=== PATIENT | female | born 1930 | race Caucasian/White ===

== ENCOUNTER 2016-11-21 09:46 | Emergency (ER) | payer MEDICARE ==
[2016-11-21] MEDS ORDERED: DIPH,PERTUS(ACELL)TETVAC-LF 0.5 ML VIAL IM ONE (10:31)
--- NOTE | 2016-11-21 10:45 | ED ---
General Adult HPI - General Chief complaint: Extremity Injury, Lower Stated complaint: RT LEG CONTUSION Time Seen by Provider: 11/21/16 09:53 Source: patient, family, RN notes reviewed Mode of arrival: wheelchair Limitations: no limitations - History of Present Illness Initial comments: Patient is a 86-year-old female presents to the emergency room for evaluation of right lower leg pain. Patient states that she got out of bed this morning and thought she ran her left foot into her right lower leg. Patient states she looked down and noticed a large blister/hematoma below her right calf. Patient' s son states they took her to [facility] and they were advised to come here. Patient states she's having 5 out of 10 pain. Patient denies numbness or tingling in her toes. Patient denies taking blood thinners. Patient states she is not up-to-date on her tetanus vaccine. - Related Data Home Medications Medication Instructions Recorded Confirmed Cyclosporine, Modified 100 mg PO HS 02/07/14 06/28/16 [Cyclosporine Modified] Multivitamin/Iron/Folic Acid 1 tab PO DAILY 02/07/14 06/28/16 [Centrum Complete Multivit Tab] amLODIPine [Norvasc] 5 mg PO QAM 02/07/14 06/28/16 Aspirin 81 mg PO QAM 05/09/15 06/28/16 Latanoprost Ophth [Xalatan 0.005%] 1 drop RIGHT EYE HS 11/02/15 06/28/16 Fluticasone Nasal [place] [Flonase 1 spray EA NOSTRIL BID 11/09/15 06/28/16 Nasal [place]] Brimonidine Tartrate [Alphagan P 1 drop BOTH EYES BID 12/17/15 06/28/16 0.2% Ophth Soln] Calcium Carbonate [Calcium] 600 mg PO QAM 06/28/16 06/28/16 Celecoxib [CeleBREX] 200 mg PO QAM 06/28/16 06/28/16 Hydrocodone/Acetaminophen [[place] 1 tab PO Q6HR PRN 06/28/16 06/28/16 5-325] Omeprazole 20 mg PO QAM 06/28/16 06/28/16 guaiFENesin [Mucinex] 600 mg PO QAM 06/28/16 06/28/16 Previous Rx's Medication Instructions Recorded Metoprolol Tartrate [Lopressor] 25 mg PO BID tab 11/14/15 Azithromycin [Zithromax] 500 mg PO DAILY #3 tab 07/01/16 Budesonide-Formot 160-4.5 Mcg 2 puff INHALATION RT-BID #3 puff 07/01/16 [Symbicort 160-4.5 Mcg Inhaler] Levalbuterol Nebulized [Xopenex 1.25 mg INHALATION QID PRN #360 07/01/16 Nebulized] nebule predniSONE 10 mg PO DAILY #30 tab 07/01/16 Cephalexin [Keflex] 500 mg PO Q6HR #40 cap 11/21/16 Allergies Allergy/AdvReac Type Severity Reaction Status Date / Time Sulfa (Sulfonamide Allergy Anaphylaxis Verified 11/21/16 09:51 Antibiotics) Review of Systems ROS Statement: Those systems with pertinent positive or pertinent negative responses have been documented in the HPI. ROS Other: All systems not noted in ROS Statement are negative. Past Medical History Past Medical History: Asthma, Blood Disorder, GERD/Reflux, Hypertension, Musculoskeletal Disorder, Osteoarthritis (OA), Respiratory Disorder Additional Past Medical History / Comment(s): FALL. Recurrent UTI BLADDER ULCERS,CHRONIC ANEMIA History of Any Multi-Drug Resistant Organisms: None Reported Past Surgical History: Appendectomy, Bladder Surgery, Bowel Resection, Hysterectomy, Orthopedic Surgery Additional Past Surgical History / Comment(s): BLADDER SX D/T ULCERS, left hip replacement November 2015, fall with right leg fracture to [facility] for rehab after Past Anesthesia/Blood Transfusion Reactions: No Reported Reaction Additional Past Anesthesia/Blood Transfusion Reaction / Comment(s): HAS HAD PREVIOUS BLOOD TRANSFUSIONS- states "no reactions" Past Psychological History: No Psychological Hx Reported Smoking Status: Never smoker Past Alcohol Use History: None Reported Past Drug Use History: None Reported - Past Family History Father Family Medical History: No Reported History Additional Family Medical History / Comment(s): FROM OLD AGE Mother Family Medical History: No Reported History Additional Family Medical History / Comment(s): FROM OLD AGE General Exam - General Exam Comments Initial Comments: Sitting in exam room, no acute distress. Limitations: no limitations General appearance: alert, in no apparent distress Head exam: Present: atraumatic, normocephalic, normal inspection Eye exam: Present: normal appearance ENT exam: Present: normal exam Neck exam: Present: normal inspection Respiratory exam: Present: normal lung sounds bilaterally. Absent: respiratory distress Cardiovascular Exam: Present: regular rate, normal rhythm, normal heart sounds Right Lower Leg exam: Present: full ROM. Absent: normal inspection (4 inch diameter blood blister/hematoma noted on the medial distal lower leg. Slighty fluctuant.) Neurovascular tendon exam: Present: no vascular compromise. Absent: pulse deficit (2+ dorsal pedal and posterior tibial pulses), abnormal cap refill ( Capillary refill less than 2 seconds) Gait: observed and normal Back exam: Present: normal inspection Neurological exam: Present: alert, oriented X3, CN II-XII intact, normal gait Psychiatric exam: Present: normal affect, normal mood Skin exam: Present: warm, dry, intact, normal color. Absent: rash Course Vital Signs 11/21/16 11/21/16 09:47 11:06 Temperature 98.7 F 98.2 F Pulse Rate 90 78 Respiratory 16 20 Rate Blood Pressure 162/72 145/78 O2 Sat by Pulse 96 98 Oximetry Procedures - Procedures Initial comment: Large blood blister/hematoma inscised with an 18-gauge needle and it appeared that blood had already clotted. Area was then incised with an 11-blade and clot removed. Inscision repaired with steristrips and covered with oil emursion strips. Right leg wrapped with gauze roll. Sterile procedure. Medical Decision Making - Medical Decision Making Patient is a 86-year-old female presents to the emergency room for evaluation of large right lower leg blood blister/hematoma. It is possible that patient was rubbing her legs together while sleeping which formed the large blood blister. Area was incised and clot removed. Area was closed with Steri- Strips. Discussed with patient and her son that she has high risk for infection. Patient will be placed on Keflex prophylactically and advised to follow-up with primary care provider every 2 days for reevaluation of the wound. Patient was updated on her tetanus vaccine. Patient states she understands everything that was discussed with her. Return parameters discussed. Case discussed with Dr. Johansen who also evaluated patient. Disposition Clinical Impression: Blood blister, Superficial hematoma Disposition: HOME SELF-CARE Condition: Good Instructions: Hematoma (ED) Additional Instructions: Take antibiotics as directed. Please follow up with primary care provider every 2 days for reevaluation of the wound site. If any new symptom arises or symptoms worsen, return to ER as soon as possible. Prescriptions: Cephalexin [Keflex] 500 mg PO Q6HR #40 cap Referrals: Dawood Washington MD [Primary Care Provider] - 1-2 days Time of Disposition: 10:43
[2016-11-21 11:07] VITALS: BP 145/78; PULSE 78; RESP 20; TEMP 98.2
== END 2016-11-21 11:06 | disposition home or self-care (01) ==
LOC: EC 09:46
DX: S80.11XA Contusion of right lower leg, initial encounter (principal); X58.XXXA Exposure to other specified factors, initial encounter; I10 Essential (primary) hypertension; J45.909 Unspecified asthma, uncomplicated; M19.90 Unspecified osteoarthritis, unspecified site; K21.9 Gastro-esophageal reflux disease without esophagitis; D64.9 Anemia, unspecified; Z79.1 Long term (current) use of non-steroidal anti-inflammatories (NSAID); Z79.51 Long term (current) use of inhaled steroids; Z79.899 Other long term (current) drug therapy; Z79.82 Long term (current) use of aspirin; Z88.2 Allergy status to sulfonamides; Z79.52 Long term (current) use of systemic steroids; Z23 Encounter for immunization
CPT/HCPCS: 10140; 90471; 90715; 99283

== ENCOUNTER → 2016-12-11 | Outpatient (CLI) | payer MEDICARE ==
--- NOTE | 2016-12-11 15:08 | XR ---
EXAMINATION TYPE: Bilateral rib series DATE OF EXAM: 12/11/2016 11:43 AM COMPARISON: Chest 06/28/2016 HISTORY: 86-year-old female rule out fractures, upper back pain for 2 to 3 weeks. FINDINGS: There is cement seen in the right paraspinal region of the mid thoracic spine likely related to extru ded methyl methacrylate during kyphoplasty. There is old healed right posterior sixth rib fracture de formity. No displaced rib fracture seen on either side. There is end-stage degenerative change at the left shoulder. IMPRESSION: No displaced rib fracture seen on either side. Old healed rib fracture deformity right posterior sixt h rib. End-stage osteoarthrosis left shoulder.
--- NOTE | 2016-12-11 15:21 | XR ---
EXAMINATION TYPE: XR cervical spine comp DATE OF EXAM: 12/11/2016 11:52 AM COMPARISON: 07/04/2014 HISTORY: 86-year-old female upper back pain for 2 to 3 weeks, rule out fracture TECHNIQUE: 8 views FINDINGS: No predental space widening or prevertebral soft tissue swelling. Advanced multilevel facet and uncov ertebral joint degenerative change. There is mild to moderate disc/endplate degenerative change also present throughout. Trace grade 1 anterolisthesis at C4-C5. Otherwise, alignment is maintained. On the right, there is moderate bony spondylotic neuroforaminal narrowing at C3-C4 and severe at C5-C 6 and probably moderate at C6-C7 though obliquity is suboptimal. On the left, there is moderate bony neuroforaminal narrowing at C2-C3 and mild throughout the other l evels. Suboptimal odontoid view. IMPRESSION: Moderate to advanced multilevel spondylotic change. There is a degenerative grade 1 anterolisthesis a t C4-C5. Variable moderate neuroforaminal narrowing on the right, severe at C5-C6.
== END | disposition home or self-care (01) ==
LOC: RADXRMAIN 10:28
PROVIDERS: ATTEND Internal Medicine Critical Care Medicine
DX: M19.012 Primary osteoarthritis, left shoulder (principal); M50.322 Other cervical disc degeneration at C5-C6 level; Z87.81 Personal history of (healed) traumatic fracture
CPT/HCPCS: 71110; 72050

== ENCOUNTER → 2016-12-25 | Outpatient (CLI) | payer MEDICARE ==
[2016-12-25 12:10] LABS: Anisocytosis Slight; CH 30.2; HCT 29.6 % (34.0-46.0); HDW 3.03; HGB 9.1 gm/dL (11.4-16.0); Hypochromasia Moderate; MCH 30.1 pg (25.0-35.0); MCHC 30.7 g/dL (31.0-37.0); Macrocytosis Slight; Mean Platelet Volume 8.6; RBC 3.02 m/uL (3.80-5.40); RDW 17.3 % (11.5-15.5); WBC 18.5 k/uL (3.8-10.6)
[2016-12-25 12:26] LABS: ALT 25 U/L (9-52); AST 12 U/L (14-36); Alkaline Phosphatase 106 U/L (38-126); Anion Gap 11 mmol/L; Blood Urea Nitrogen 40 mg/dL (7-17); C Reactive Protein 10.7 mg/L (<10.0); Carbon Dioxide 22 mmol/L (22-30); Chloride 106 mmol/L (98-107); Glucose 97 mg/dL (74-99); Non-African American GFR(MDRD) 43 (>60 ml/min/1.73 sqM); Potassium 5.7 mmol/L (3.5-5.1); Sodium 139 mmol/L (137-145); Total Bilirubin 0.3 mg/dL (0.2-1.3); Total Protein 6.1 g/dL (6.3-8.2)
[2016-12-25 12:31] LABS: Prealbumin 25 mg/dL (18-36); Rheumatoid Factor, Qnt <9 IU/mL (<12)
[2016-12-25 15:40] LABS: Erythrocyte Sedimentation Rate 40 mm/hr (0-20)
== END | disposition home or self-care (01) ==
LOC: LABWHC1 11:37
PROVIDERS: ATTEND Family Medicine
DX: I87.2 Venous insufficiency (chronic) (peripheral) (principal)
CPT/HCPCS: 36415; 80053; 82164; 84134; 85027; 85652; 86038; 86140; 86431

== ENCOUNTER → 2017-01-05 | Outpatient (CLI) | payer MEDICARE ==
--- NOTE | 2017-01-05 15:47 | US ---
EXAMINATION TYPE: US venous doppler duplex LE DATE OF EXAM: 01/05/2017 2:47 PM COMPARISON: NONE CLINICAL HISTORY: M79.604 PAIN RT LEG, M79.603 PAIN LT LEG. Bilateral lower leg wounds LOWER EXTREMITY VENOUS INSUFFICIENCY SIDE PERFORMED: bilateral IMPRESSION: 1) Color flow is present and patency is documented in the following vessels. No DVT or SVT is noted . ? EIV ? Common Femoral Vein ? Deep Femoral Vein ? Femoral Vein ? Popliteal Vein ? Proximal Calf Veins ? Greater Saph Vein ? Upper Small Saph Vein 2) There is venous reflux noted at the following venous levels: Minimal reflux noted left popliteal vein.
--- NOTE | 2017-01-07 10:09 | P.ARTDOP ---
Arterial Doppler LOWER EXTREMITY ARTERIAL DOPPLER: DATE OF SERVICE: 01/05/2017 Reason for study: Bilateral lower leg ulcers. Doppler waveforms: Multiphasic bilaterally throughout. Pulse volume recording: Normal configuration. Pressure gradients: None. Ankle-brachial indices: Unable to occlude. Toe pressures: 111 on the right, 1:15 on the left Impression: Suspect some calcific wall disease creating inability to occlude ankle pressures. Appears to not affect flow and flow patterns appear normal..
== END | disposition home or self-care (01) ==
LOC: RADUSWWP 14:08
PROVIDERS: ATTEND Family Medicine
DX: I87.2 Venous insufficiency (chronic) (peripheral) (principal); M79.604 Pain in right leg; M79.605 Pain in left leg
CPT/HCPCS: 93923; 93970

== ENCOUNTER 2017-01-31 17:58 | Inpatient (IN) | payer MEDICARE ==
[2017-01-31] MEDS ORDERED: methylPREDNISolone SOD SUCCI 125 MG/2 ML VIAL IV STA (18:27)
[2017-01-31] MEDS ORDERED: IPRATROPIUM-ALBUTEROL 3 ML NEB INHALATION STA (18:27)
[2017-01-31] MEDS ORDERED: SODIUM CHLORIDE 0.9% 1,000 ML IV STA ×2 (18:27→22:02)
--- NOTE | 2017-01-31 18:31 | ED ---
SOB HPI - General Chief Complaint: Shortness of Breath Stated Complaint: hot flashes, chaparro, dizziness recent Hx bronchitis Time Seen by Provider: 01/31/17 18:20 Source: patient, family, RN notes reviewed Mode of arrival: wheelchair Limitations: no limitations - History of Present Illness Initial Comments: This is a 86-year-old female history of COPD and bronchitis who just finished her course of treatment with oral steroids and azithromycin who presents with complaints of shortness of breath chest pain from the coughing some fevers and sweats. Generalized weakness also decreased oral intake. MD Complaint: shortness of breath, cough, chest pain - Related Data Home Medications Medication Instructions Recorded Confirmed Cyclosporine, Modified 100 mg PO HS 02/07/14 01/29/17 [Cyclosporine Modified] amLODIPine [Norvasc] 5 mg PO QAM 02/07/14 01/31/17 Aspirin 81 mg PO QAM 05/09/15 01/31/17 Latanoprost Ophth [Xalatan 0.005%] 1 drop BOTH EYES HS 11/02/15 01/31/17 Fluticasone Nasal [place] [Flonase 1 spray EA NOSTRIL BID 11/09/15 01/31/17 Nasal [place]] Brimonidine Tartrate [Alphagan P 1 drop BOTH EYES BID 12/17/15 01/31/17 0.2% Ophth Soln] Calcium Carbonate [Calcium] 600 mg PO QAM 06/28/16 01/31/17 Celecoxib [CeleBREX] 200 mg PO QAM 06/28/16 01/31/17 Omeprazole 20 mg PO QAM 06/28/16 01/31/17 guaiFENesin [Mucinex] 600 mg PO QAM 06/28/16 01/31/17 Azithromycin [Zithromax] 500 mg PO DAILY 01/31/17 01/31/17 Betaxolol HCl [Betoptic S 0.5% 1 drop BOTH EYES BID 01/31/17 01/31/17 Ophth Soln] Cyanocobalamin (Vitamin B-12) 1,000 mcg PO DAILY 01/31/17 01/31/17 [Vitamin B-12] Levalbuterol Nebulized [Xopenex 1.25 mg INHALATION RT-BID 01/31/17 01/31/17 Nebulized] Tiotropium [place] [Spiriva] 1 cap INHALATION RT-DAILY 01/31/17 01/31/17 cycloSPORINE 0.05% OPHTH SOLN 1 drop BOTH EYES BID 01/31/17 01/31/17 [Restasis] predniSONE See Taper PO DAILY 01/31/17 01/31/17 Previous Rx's Medication Instructions Recorded Metoprolol Tartrate [Lopressor] 25 mg PO BID tab 11/14/15 Budesonide-Formot 160-4.5 Mcg 2 puff INHALATION RT-BID #3 puff 07/01/16 [Symbicort 160-4.5 Mcg Inhaler] Allergies Allergy/AdvReac Type Severity Reaction Status Date / Time Sulfa (Sulfonamide Allergy Anaphylaxis Verified 01/31/17 18:33 Antibiotics) Review of Systems ROS Statement: Those systems with pertinent positive or pertinent negative responses have been documented in the HPI. ROS Other: All systems not noted in ROS Statement are negative. Past Medical History Past Medical History: Asthma, Blood Disorder, GERD/Reflux, Hypertension, Musculoskeletal Disorder, Osteoarthritis (OA), Respiratory Disorder Additional Past Medical History / Comment(s): CHRONIC ANEMIA History of Any Multi-Drug Resistant Organisms: MRSA Date of last positivie culture/infection: 12/18/16 MDRO Source:: RIGHT LEG Past Surgical History: Appendectomy, Bladder Surgery, Bowel Resection, Hysterectomy, Orthopedic Surgery Additional Past Surgical History / Comment(s): BLADDER SX D/T ULCERS, left hip replacement November 2015, fall with right leg fracture to [facility] for rehab after Past Anesthesia/Blood Transfusion Reactions: No Reported Reaction Additional Past Anesthesia/Blood Transfusion Reaction / Comment(s): HAS HAD PREVIOUS BLOOD TRANSFUSIONS- states "no reactions" Past Psychological History: No Psychological Hx Reported Smoking Status: Never smoker Past Alcohol Use History: None Reported Past Drug Use History: None Reported - Past Family History Father Family Medical History: No Reported History Additional Family Medical History / Comment(s): FROM OLD AGE Mother Family Medical History: No Reported History Additional Family Medical History / Comment(s): FROM OLD AGE General Exam - General Exam Comments Initial Comments: This is a well-developed well-nourished awake alert oriented x 3female Limitations: no limitations General appearance: alert, in distress Head exam: Present: atraumatic, normocephalic, normal inspection Eye exam: Present: normal appearance, PERRL, EOMI. Absent: scleral icterus, conjunctival injection, periorbital swelling ENT exam: Present: mucous membranes dry Neck exam: Present: normal inspection. Absent: tenderness, meningismus, lymphadenopathy Respiratory exam: Present: accessory muscle use, decreased breath sounds. Absent: respiratory distress, wheezes, rales, rhonchi, stridor Cardiovascular Exam: Present: regular rate, normal rhythm, tachycardia, normal heart sounds. Absent: systolic murmur, diastolic murmur, rubs, gallop, clicks GI/Abdominal exam: Present: soft, normal bowel sounds. Absent: distended, tenderness, guarding, rebound, rigid Extremities exam: Present: normal inspection, full ROM, normal capillary refill. Absent: tenderness, pedal edema, joint swelling, calf tenderness Back exam: Present: normal inspection Neurological exam: Present: alert, oriented X3, CN II-XII intact Psychiatric exam: Present: normal affect, normal mood Skin exam: Present: warm, dry, intact, normal color. Absent: rash Course Vital Signs 01/31/17 01/31/17 01/31/17 18:07 18:19 18:47 Temperature 98.5 F Pulse Rate 121 H 119 H Respiratory 20 16 Rate Blood Pressure 167/80 O2 Sat by Pulse 95 Oximetry 01/31/17 01/31/17 18:57 19:57 Temperature 98.1 F Pulse Rate 120 H 119 H Respiratory 18 Rate Blood Pressure 158/83 O2 Sat by Pulse 99 Oximetry - Reevaluation(s) Reevaluation #1: 01/31/17 20:51 I did reevaluate the patient she was feeling slightly better so short of breath however. Medical Decision Making - Medical Decision Making I did discuss findings with the patient family as well as with Dr. Duarte. 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 Visual be admitted place an IV antibiotics and consultation by Dr. Schafer - Lab Data Result diagrams: 01/31/17 18:29 01/31/17 18:29 Lab Results 01/31/17 01/31/17 01/31/17 Range/Units 18:29 18:29 18:29 WBC 19.4 H (3.8-10.6) k/uL RBC 3.65 L (3.80-5.40) m/uL Hgb 11.0 L (11.4-16.0) gm/dL Hct 34.2 (34.0-46.0) % MCV 93.6 (80.0-100.0) fL MCH 30.0 (25.0-35.0) pg MCHC 32.1 (31.0-37.0) g/dL RDW 16.6 H (11.5-15.5) % Plt Count 356 (150-450) k/uL Neutrophils % 92 % Lymphocytes % 3 % Monocytes % 4 % Eosinophils % 0 % Basophils % 0 % Neutrophils # 17.8 H (1.3-7.7) k/uL Lymphocytes # 0.6 L (1.0-4.8) k/uL Monocytes # 0.8 (0-1.0) k/uL Eosinophils # 0.0 (0-0.7) k/uL Basophils # 0.1 (0-0.2) k/uL Manual Slide Review Performed Toxic Granulation Present Large Platelets Present Anisocytosis Slight PT (9.0-12.0) sec INR (<1.1) APTT (22.0-30.0) sec Sodium 137 (137-145) mmol/L Potassium 5.9 H (3.5-5.1) mmol/L Chloride 103 (98-107) mmol/L Carbon Dioxide 25 (22-30) mmol/L Anion Gap 9 mmol/L BUN 49 H (7-17) mg/dL Creatinine 1.10 H (0.52-1.04) mg/dL Est GFR (MDRD) Af Amer 57 (>60 ml/min/1.73 sqM) Est GFR (MDRD) Non-Af 47 (>60 ml/min/1.73 sqM) Glucose 134 H (74-99) mg/dL Calcium 9.5 (8.4-10.2) mg/dL Magnesium 2.2 (1.6-2.3) mg/dL Total Bilirubin 0.5 (0.2-1.3) mg/dL AST 16 (14-36) U/L ALT 27 (9-52) U/L Alkaline Phosphatase 121 (38-126) U/L Total Creatine Kinase 24 L (30-135) U/L CK-MB (CK-2) 1.5 (0.0-2.4) ng/mL CK-MB (CK-2) Rel Index 6.3 Troponin I <0.012 (0.000-0.034) ng/mL NT-Pro-B Natriuret Pep pg/mL Total Protein 6.2 L (6.3-8.2) g/dL Albumin 3.5 (3.5-5.0) g/dL 01/31/17 01/31/17 Range/Units 18:29 18:29 WBC (3.8-10.6) k/uL RBC (3.80-5.40) m/uL Hgb (11.4-16.0) gm/dL Hct (34.0-46.0) % MCV (80.0-100.0) fL MCH (25.0-35.0) pg MCHC (31.0-37.0) g/dL RDW (11.5-15.5) % Plt Count (150-450) k/uL Neutrophils % % Lymphocytes % % Monocytes % % Eosinophils % % Basophils % % Neutrophils # (1.3-7.7) k/uL Lymphocytes # (1.0-4.8) k/uL Monocytes # (0-1.0) k/uL Eosinophils # (0-0.7) k/uL Basophils # (0-0.2) k/uL Manual Slide Review Toxic Granulation Large Platelets Anisocytosis PT 10.9 (9.0-12.0) sec INR 1.1 (<1.1) APTT 20.5 L (22.0-30.0) sec Sodium (137-145) mmol/L Potassium (3.5-5.1) mmol/L Chloride (98-107) mmol/L Carbon Dioxide (22-30) mmol/L Anion Gap mmol/L BUN (7-17) mg/dL Creatinine (0.52-1.04) mg/dL Est GFR (MDRD) Af Amer (>60 ml/min/1.73 sqM) Est GFR (MDRD) Non-Af (>60 ml/min/1.73 sqM) Glucose (74-99) mg/dL Calcium (8.4-10.2) mg/dL Magnesium (1.6-2.3) mg/dL Total Bilirubin (0.2-1.3) mg/dL AST (14-36) U/L ALT (9-52) U/L Alkaline Phosphatase (38-126) U/L Total Creatine Kinase (30-135) U/L CK-MB (CK-2) (0.0-2.4) ng/mL CK-MB (CK-2) Rel Index Troponin I (0.000-0.034) ng/mL NT-Pro-B Natriuret Pep 1340 pg/mL Total Protein (6.3-8.2) g/dL Albumin (3.5-5.0) g/dL - EKG Data -: EKG Interpreted by Me EKG shows normal: sinus rhythm (Sinus tachycardia with a rate 114 QRS 82. Interval 136 QT since QTC of throwing/424. Return for LVH poor R-wave progression artifact is present) - Radiology Data Radiology results: report reviewed (I did review the imaging and reports evidence a left lower lobe infiltrate.), image reviewed Disposition Clinical Impression: Pneumonia, Failure of outpatient treatment, Bronchospasm, Tachycardia Disposition: ADMITTED IP TO THIS HOSP Condition: Stable Referrals: Dawood Washington MD [Primary Care Provider] - 1-2 days
[2017-01-31 18:47] LABS: Anisocytosis Slight; Basophils # (A) 0.1 k/uL (0-0.2); Basophils % (A) 0 %; CH 30.5; CHCM 32.7; Eosinophils % (A) 0 %; HCT 34.2 % (34.0-46.0); HDW 2.79; Immature Gran Flag Slight; Luc # (Auto) 0.13; Luc % (Auto) 1; Lymphocytes # (A) 0.6 k/uL (1.0-4.8); Lymphocytes % (A) 3 %; MCHC 32.1 g/dL (31.0-37.0); MCV 93.6 fL (80.0-100.0); Mean Platelet Volume 9.8; Monocytes # (A) 0.8 k/uL (0-1.0); Monocytes % (A) 4 %; Neutrophils # (A) 17.8 k/uL (1.3-7.7); Neutrophils % (A) 92 %; RBC 3.65 m/uL (3.80-5.40); RDW 16.6 % (11.5-15.5); WBC 19.4 k/uL (3.8-10.6); WBC (Perox) 20.76
[2017-01-31 18:50] LABS: INR 1.1 (<1.1); Prothrombin Time 10.9 sec (9.0-12.0)
[2017-01-31 18:58] LABS: Calcium 9.5 mg/dL (8.4-10.2); Magnesium 2.2 mg/dL (1.6-2.3); Potassium 5.9 mmol/L (3.5-5.1); Total Bilirubin 0.5 mg/dL (0.2-1.3); Total Protein 6.2 g/dL (6.3-8.2)
[2017-01-31 19:00] LABS: Partial Thromboplastin Time 20.5 sec (22.0-30.0)
[2017-01-31 19:01] LABS: Creatine Kinase 24 U/L (30-135)
[2017-01-31 19:02] LABS: Large Platelets Present; Manual Review Performed; Toxic Granulation Present
[2017-01-31 19:14] LABS: Creatine Kinase MB 1.5 ng/mL (0.0-2.4); Troponin I <0.012 ng/mL (0.000-0.034)
--- NOTE | 2017-01-31 19:20 | XR ---
EXAMINATION TYPE: XR chest 2V DATE OF EXAM: 01/31/2017 COMPARISON: 07/31/2016 HISTORY: 86-year-old female difficulty breathing TECHNIQUE: PA and lateral views FINDINGS: Heart is upper limits of normal in size. Elongation of the thoracic aorta similar to prior. Diffuse i nterstitial prominence stable subtle densities in the apices suggestive of pleural parenchymal scarri ng. Some patchy peripheral left basilar opacity. No other consolidation. No pleural effusion. There i s mid thoracic vertebroplasty change within some right lateral extruded methylmethacrylate. Similar p rior exam. Old healed right upper posterior rib fracture deformities. Severe scoliosis. Degenerative changes left greater than right shoulders. IMPRESSION: 1. Borderline heart size with extensive chronic parenchymal changes, possible chronic bronchitis/asth ma or COPD. 2. Some patchy atelectasis or early infiltrate at the left base. 3. Severe scoliosis.
[2017-01-31] MEDS ORDERED: LEVOFLOXACIN 750MG-D5W PMX 750 MG in DEXTROSE/WATER 1 150ML.BAG IVPB STA (20:53)
[2017-01-31] MEDS ORDERED: PNEUMONIA PROTOCOL UTILIZED 1 EACH MISC PO PRN (20:53)
[2017-01-31] MEDS ORDERED: IPRATROPIUM-ALBUTEROL 3 ML NEB INHALATION PRN (21:26)
[2017-01-31] MEDS ORDERED: SODIUM POLYSTYRENE SULFONATE 15 GM/60 ML BOTTLE PO STA (22:02)
[2017-01-31] MEDS: TIMOLOL 0.5% OPHTH DROPS 5 ML BTL BOTH EYES SCH (22:40)
[2017-01-31] MEDS: METOPROLOL TARTRATE 25 MG TAB PO SCH (22:42)
[2017-01-31] MEDS: FLUTICASONE 50MCG/SPRAY NASAL 16GM EA NOSTRIL SCH (22:42)
[2017-01-31] MEDS: LATANOPROST 0.005% OPHTH DROPS 2.5 ML BTL BOTH EYES SCH (22:43)
[2017-01-31] MEDS: cycloSPORINE 0.05% OPHTH 0.4 ML DROPERETTE BOTH EYES SCH (22:43)
[2017-01-31] MEDS: SODIUM CHLORIDE 0.9% 1,000 ML IV SCH (22:44)
[2017-02-01] MEDS ORDERED: IPRATROPIUM-ALBUTEROL 3 ML NEB INHALATION SCH
[2017-02-01] MEDS: PIPERACILLIN-TAZOBACTAM 3.375 GM in DEXTROSE/WATER 1 50ML.BAG IVPB SCH ×4 (00:03→23:00)
[2017-02-01] MEDS: IPRATROPIUM-ALBUTEROL 3 ML NEB INHALATION SCH ×4 (07:48→20:52)
[2017-02-01] MEDS ORDERED: TIOTROPIUM 18 MCG/PUFF INHALER INHALATION SCH (08:00)
[2017-02-01] MEDS: ASPIRIN 81 MG CHEW PO SCH (09:01)
[2017-02-01] MEDS: amLODIPine 5 MG TAB PO SCH (09:01)
[2017-02-01] MEDS: MELOXICAM 7.5 MG TAB PO SCH (09:02)
[2017-02-01] MEDS: PANTOPRAZOLE 40 MG TABLET PO SCH (09:03)
[2017-02-01] MEDS: cycloSPORINE 0.05% OPHTH 0.4 ML DROPERETTE BOTH EYES SCH ×2 (09:03→20:34)
[2017-02-01] MEDS: METOPROLOL TARTRATE 25 MG TAB PO SCH ×2 (09:03→20:35)
[2017-02-01] MEDS: FLUTICASONE 50MCG/SPRAY NASAL 16GM EA NOSTRIL SCH ×2 (09:14→20:35)
[2017-02-01] MEDS: TIMOLOL 0.5% OPHTH DROPS 5 ML BTL BOTH EYES SCH ×2 (09:14→20:35)
[2017-02-01] MEDS: guaiFENesin 600 MG TABLET.ER PO SCH (09:25)
[2017-02-01] MEDS: SODIUM CHLORIDE 0.9% 1,000 ML IV SCH ×2 (09:25→20:51)
--- NOTE | 2017-02-01 10:20 | P.CNPUL ---
History of Present Illness Consult date: 02/01/17 Requesting physician: Luis Isidro Jr Reason for consult: dyspnea, cough, asthma, pneumonia Chief complaint: Shortness of breath History of present illness: This is an 86-year-old female who is primarily a patient of Dr. Washington and she sees Dr. Schafer for history of chronic bronchial asthma and minimal interstitial lung disease as well as stable pulmonary nodule. Patient is a lifelong nonsmoker. She is known to have history of GERD, hypertension, osteoarthritis, chronic back pain, and chronic lower extremities ulcer as well as chronic anemia. Patient presented to the ER with a few days' history of cough wheezing shortness of breath, low-grade fevers, and chills. Patient was also complaining of generalized weakness and fatigue with decreased oral intake. Chest x-ray showed chronic parenchymal changes and it also showed infiltrate in the left lower lobe area. Patient was admitted, and this consult was initiated. Since admission patient has been showing some improvement, but continues to have some cough and wheezing. Shortness of breath is slightly improved. CBC showed evidence of leukocytosis with a WBC count of 19.4, hemoglobin was 11, patient was also noted to have a picture of prerenal azotemia and hyperkalemia BUN of 49 and creatinine of 1.1, and potassium of 5.9. ProBNP level was a bit elevated, chest x-ray was more suggestive of left lower lobe pneumonia than congestive heart failure. Review of Systems Constitutional: Chronic weakness, fatigue, malaise, fever and chills on admission. HEENT: No headaches no blurred vision no dizziness, no sore throat. Pulmonary: As noted in the HPI. Cardiac: No chest pain, no palpitations, no diaphoresis. GI: No symptoms of nausea vomiting abdominal pain melena or hematemesis. No symptoms of active GERD. Genitourinary: No dysuria, no frequency, no urgency. [place] skeletal: Vague aches and pains. Dermatologic: History of full-thickness ulcers to right medial leg, being followed at the wound care center. Neurologic: No headaches no blurred vision no ataxia. No seizures. Endocrine: No heat or cold intolerance. No polyuria, no polyphagia, no polydipsia. Psychiatric: No symptoms of active depression. Hematologic: No clotting no bleeding and no history of the vein thrombosis or thrombotic embolic disease. Patient does have however a history of chronic anemia. History of myelodysplasia. Past Medical History Past Medical History: Asthma, Blood Disorder, COPD, GERD/Reflux, Hypertension, Musculoskeletal Disorder, Osteoarthritis (OA), Respiratory Disorder Additional Past Medical History / Comment(s): CHRONIC ANEMIA History of Any Multi-Drug Resistant Organisms: MRSA Date of last positivie culture/infection: 12/18/16 MDRO Source:: RIGHT LEG Past Surgical History: Appendectomy, Bladder Surgery, Bowel Resection, Hysterectomy, Orthopedic Surgery Additional Past Surgical History / Comment(s): BLADDER SX D/T ULCERS, left hip replacement November 2015, fall with right leg fracture to [facility] for rehab after Past Anesthesia/Blood Transfusion Reactions: No Reported Reaction Additional Past Anesthesia/Blood Transfusion Reaction / Comment(s): HAS HAD PREVIOUS BLOOD TRANSFUSIONS- states "no reactions" Past Psychological History: No Psychological Hx Reported Smoking Status: Never smoker Past Alcohol Use History: None Reported Past Drug Use History: None Reported - Past Family History Father Family Medical History: No Reported History Additional Family Medical History / Comment(s): FROM OLD AGE Mother Family Medical History: No Reported History Additional Family Medical History / Comment(s): FROM OLD AGE Medications and Allergies Home Medications Medication Instructions Recorded Confirmed Type Cyclosporine, Modified 100 mg PO HS 02/07/14 01/29/17 History [Cyclosporine Modified] amLODIPine [Norvasc] 5 mg PO QAM 02/07/14 01/31/17 History Aspirin 81 mg PO QAM 05/09/15 01/31/17 History Latanoprost Ophth [Xalatan 0.005%] 1 drop BOTH EYES HS 11/02/15 01/31/17 History Fluticasone Nasal [place] [Flonase 1 spray EA NOSTRIL BID 11/09/15 01/31/17 History Nasal [place]] Brimonidine Tartrate [Alphagan P 1 drop BOTH EYES BID 12/17/15 01/31/17 History 0.2% Ophth Soln] Calcium Carbonate [Calcium] 600 mg PO QAM 06/28/16 01/31/17 History Celecoxib [CeleBREX] 200 mg PO QAM 06/28/16 01/31/17 History Omeprazole 20 mg PO QAM 06/28/16 01/31/17 History guaiFENesin [Mucinex] 600 mg PO QAM 06/28/16 01/31/17 History Azithromycin [Zithromax] 500 mg PO DAILY 01/31/17 01/31/17 History Betaxolol HCl [Betoptic S 0.5% 1 drop BOTH EYES BID 01/31/17 01/31/17 History Ophth Soln] Cyanocobalamin (Vitamin B-12) 1,000 mcg PO DAILY 01/31/17 01/31/17 History [Vitamin B-12] Levalbuterol Nebulized [Xopenex 1.25 mg INHALATION RT-BID 01/31/17 01/31/17 History Nebulized] Tiotropium Max [Spiriva] 1 cap INHALATION RT-DAILY 01/31/17 01/31/17 History cycloSPORINE 0.05% OPHTH SOLN 1 drop BOTH EYES BID 01/31/17 01/31/17 History [Restasis] predniSONE See Taper PO DAILY 01/31/17 01/31/17 History Allergies Allergy/AdvReac Type Severity Reaction Status Date / Time Sulfa (Sulfonamide Allergy Anaphylaxis Verified 01/31/17 18:33 Antibiotics) Physical Exam Vitals: Vital Signs Temp Pulse Pulse Resp BP BP Pulse Ox 02/01/17 08:01 100 02/01/17 08:00 97.5 F L 90 16 158/94 100 02/01/17 07:52 96 94 L 02/01/17 04:00 97.1 F L 93 16 147/86 99 02/01/17 00:00 97 F L 103 H 16 152/82 98 01/31/17 21:23 98.2 F 116 H 18 169/81 97 01/31/17 21:11 97 F L 126 H 16 167/95 95 01/31/17 19:57 98.1 F 119 H 18 158/83 99 01/31/17 18:57 120 H 01/31/17 18:47 119 H 01/31/17 18:19 16 01/31/17 18:07 98.5 F 121 H 20 167/80 95 Intake and Output 01/31/17 02/01/17 02/01/17 22:59 06:59 14:59 Intake Total 180 450 240 Balance 180 450 240 Intake: IV 180 400 Levofloxacin 750Mg-D5w 50 Pmx 750 mg In Dextrose/ Water 1 150ml.bag @ 100 mls/hr IVPB ONCE [facility] Rx#: [id number] Piperacillin-Tazobactam 3 50 .375 gm In Dextrose/Water 1 50ml.bag @ 12.5 mls/hr IVPB Q8HR [facility] Rx#: [id number] Sodium Chloride 0.9% 1, 80 400 000 ml @ 80 mls/hr IV . [id number] [facility] Rx#:[id number] Oral 50 240 Other: Voiding Method Diaper Diaper # Voids 2 1 1 Weight 40.4 kg 40.4 kg Physical Exam: Revealed an 86-year-old female, chronically ill, frail looking, in no distress. HEENT:[Neck is supple.] [No neck masses.] [No thyromegaly.] [No JVD.] Chest: [Significant rhonchi and crackles noted mostly at the left base. No expiratory rhonchi or wheezes noted. Cardiac Exam: [Normal S1 and S2, no S3 gallop, no murmur.] Abdomen: [Soft, nontender, no megaly, no rebound, no guarding, normal bowel sounds.] Extremities: [Both lower extremities are wrapped with dressings related to chronic ulcerations, being followed at the wound care center.] Neurological Exam: [No focal neurologic deficit.] Results - Laboratory Findings CBC and BMP: 01/31/17 18:29 01/31/17 18:29 PT/INR, D-dimer PT 10.9 sec (9.0-12.0) 01/31/17 18:29 INR 1.1 (<1.1) 01/31/17 18:29 Abnormal lab findings: Abnormal Labs 01/31/17 01/31/17 01/31/17 18:29 18:29 18:29 WBC 19.4 H RBC 3.65 L Hgb 11.0 L RDW 16.6 H Neutrophils # 17.8 H Lymphocytes # 0.6 L APTT Potassium 5.9 H BUN 49 H Creatinine 1.10 H Glucose 134 H Plasma Lactic Acid Tuan Total Creatine Kinase 24 L Total Protein 6.2 L 01/31/17 01/31/17 18:29 21:18 WBC RBC Hgb RDW Neutrophils # Lymphocytes # APTT 20.5 L Potassium BUN Creatinine Glucose Plasma Lactic Acid Tuan 0.6 L Total Creatine Kinase Total Protein - Diagnostic Findings Chest x-ray: image reviewed (Strongly suspect left lower lobe pneumonia as noted on the chest x-ray. Minimal chronic parenchymal changes were also noted.) Assessment and Plan Plan: Impression: 1 acute community-acquired left lower lobe pneumonia 2 acute exacerbation of mild intermittent asthma 3 history of right upper lobe nodule which has been stable and measuring 5 mm, patient is being followed by Dr. Schafer on outpatient basis. 4 history of multiple comorbidities including hypertension, chronic anemia, myelodysplasia, osteoarthritis, kyphoscoliosis and chronic cervical pain, Recommendation: Agree with the present treatment plan including bronchodilators , antibiotics, steroids, patient will be followed again tomorrow by Dr. Schafer who is quite familiar with the patient, and has been monitoring her nodules and her minimal interstitial lung disease for quite some time. Patient will remain on DuoNeb updrafts 4 times a day and when necessary, continue Levaquin, continue Solu-Medrol, will add Symbicort, and we'll follow closely. Time with Patient: Greater than 30
--- NOTE | 2017-02-01 11:00 | XR ---
EXAMINATION TYPE: XR chest 2V DATE OF EXAM: 02/01/2017 COMPARISON: 01/31/2017 HISTORY: 86-year-old female follow-up pneumonia TECHNIQUE: Frontal and lateral views FINDINGS: Heart remains upper limits of normal in size. Diffuse interstitial prominence remains. Mid thoracic v ertebral compression deformities with some extruded vertebroplasty cement along the right lateral asp ect. Underlying scoliosis. Old right posterior upper rib fracture deformities. Some residual patchy p eripheral left basilar opacity remains. No pleural effusion. End-stage degenerative change left shoul vianney. IMPRESSION: Some residual patchy peripheral left basilar opacity remains. Chronic parenchymal changes.
[2017-02-01] MEDS: methylPREDNISolone SOD SUCCI 40 MG/ML 1 ML VIAL IV SCH ×3 (11:32→23:01)
[2017-02-01] MEDS: CALCIUM CARB-VIT D 500MG-200UN 1 EACH TAB PO SCH (11:34)
[2017-02-01] MEDS: CYANOCOBALAMIN 500 MCG TAB PO SCH (11:34)
[2017-02-01] MEDS: INSULIN LISPRO (humaLOG) 300 UNIT/3 ML VIAL SQ SCH ×3 (13:05→20:50)
--- NOTE | 2017-02-01 13:13 | P.HPIM ---
History of Present Illness H&P Date: 02/01/17 Chief Complaint: Dyspnea ,cough asthma pneumonia Hanna is an 86-year-old female well-known to both myself Dr. Washington , she also sees Dr. 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 Patient is a nonsmoker, known to have a history of GERD, hypertension osteoarthritis and chronic back pain. 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 Chest x-ray shows chronic parenchymal changes also shows an infiltrate in the left lower lobe. Patient was admitted IV antibiotics were initiated patient also is shows CBC shows leukocytosis white count of 19.4 hemoglobin was 11 patient also noted to have prerenal azotemia and hyperkalemia the BUS to 49 creatinine of 1.1 potassium 5.9 we'll reevaluate patient's potassium this morning Review of Systems Cardiovascular: Reports dyspnea on exertion Respiratory: Reports cough with sputum Gastrointestinal: Reports dyspepsia Genitourinary: Reports urgency Menstruation: Reports as per HPI Musculoskeletal: Reports as per HPI Integumentary: Reports wounds (Methicillin-resistant staph, being treated in the wound center) Neurological: Reports as per HPI Psychiatric: Reports as per HPI Endocrine: Reports as per HPI Past Medical History Past Medical History: Asthma, Blood Disorder, COPD, GERD/Reflux, Hypertension, Musculoskeletal Disorder, Osteoarthritis (OA), Respiratory Disorder Additional Past Medical History / Comment(s): CHRONIC ANEMIA History of Any Multi-Drug Resistant Organisms: MRSA Date of last positivie culture/infection: 12/18/16 MDRO Source:: RIGHT LEG Past Surgical History: Appendectomy, Bladder Surgery, Bowel Resection, Hysterectomy, Orthopedic Surgery Additional Past Surgical History / Comment(s): BLADDER SX D/T ULCERS, left hip replacement November 2015, fall with right leg fracture to [facility] for rehab after Past Anesthesia/Blood Transfusion Reactions: No Reported Reaction Additional Past Anesthesia/Blood Transfusion Reaction / Comment(s): HAS HAD PREVIOUS BLOOD TRANSFUSIONS- states "no reactions" Past Psychological History: No Psychological Hx Reported Smoking Status: Never smoker Past Alcohol Use History: None Reported Past Drug Use History: None Reported - Past Family History Father Family Medical History: No Reported History Additional Family Medical History / Comment(s): FROM OLD AGE Mother Family Medical History: No Reported History Additional Family Medical History / Comment(s): FROM OLD AGE Medications and Allergies Home Medications Medication Instructions Recorded Confirmed Type Cyclosporine, Modified 100 mg PO HS 02/07/14 01/29/17 History [Cyclosporine Modified] amLODIPine [Norvasc] 5 mg PO QAM 02/07/14 01/31/17 History Aspirin 81 mg PO QAM 05/09/15 01/31/17 History Latanoprost Ophth [Xalatan 0.005%] 1 drop BOTH EYES HS 11/02/15 01/31/17 History Fluticasone Nasal [place] [Flonase 1 spray EA NOSTRIL BID 11/09/15 01/31/17 History Nasal [place]] Brimonidine Tartrate [Alphagan P 1 drop BOTH EYES BID 12/17/15 01/31/17 History 0.2% Ophth Soln] Calcium Carbonate [Calcium] 600 mg PO QAM 06/28/16 01/31/17 History Celecoxib [CeleBREX] 200 mg PO QAM 06/28/16 01/31/17 History Omeprazole 20 mg PO QAM 06/28/16 01/31/17 History guaiFENesin [Mucinex] 600 mg PO QAM 06/28/16 01/31/17 History Azithromycin [Zithromax] 500 mg PO DAILY 01/31/17 01/31/17 History Betaxolol HCl [Betoptic S 0.5% 1 drop BOTH EYES BID 01/31/17 01/31/17 History Ophth Soln] Cyanocobalamin (Vitamin B-12) 1,000 mcg PO DAILY 01/31/17 01/31/17 History [Vitamin B-12] Levalbuterol Nebulized [Xopenex 1.25 mg INHALATION RT-BID 01/31/17 01/31/17 History Nebulized] Tiotropium [place] [Spiriva] 1 cap INHALATION RT-DAILY 01/31/17 01/31/17 History cycloSPORINE 0.05% OPHTH SOLN 1 drop BOTH EYES BID 01/31/17 01/31/17 History [Restasis] predniSONE See Taper PO DAILY 01/31/17 01/31/17 History Allergies Allergy/AdvReac Type Severity Reaction Status Date / Time Sulfa (Sulfonamide Allergy Anaphylaxis Verified 01/31/17 18:33 Antibiotics) Physical Exam Osteopathic Statement: *. No significant issues noted on an osteopathic structural exam other than those noted in the History and Physical/Consult. Vitals: Vital Signs Temp Pulse Pulse Resp BP BP Pulse Ox 02/01/17 12:11 96 02/01/17 12:00 96 02/01/17 08:01 100 02/01/17 08:00 97.5 F L 90 16 158/94 100 02/01/17 07:52 96 94 L 02/01/17 04:00 97.1 F L 93 16 147/86 99 02/01/17 00:00 97 F L 103 H 16 152/82 98 01/31/17 21:23 98.2 F 116 H 18 169/81 97 01/31/17 21:11 97 F L 126 H 16 167/95 95 01/31/17 19:57 98.1 F 119 H 18 158/83 99 01/31/17 18:57 120 H 01/31/17 18:47 119 H 01/31/17 18:19 16 01/31/17 18:07 98.5 F 121 H 20 167/80 95 Intake and Output 01/31/17 02/01/17 02/01/17 22:59 06:59 14:59 Intake Total 180 450 360 Balance 180 450 360 Intake: IV 180 400 Levofloxacin 750Mg-D5w 50 Pmx 750 mg In Dextrose/ Water 1 150ml.bag @ 100 mls/hr IVPB ONCE [facility] Rx#: [id number] Piperacillin-Tazobactam 3 50 .375 gm In Dextrose/Water 1 50ml.bag @ 12.5 mls/hr IVPB Q8HR [facility] Rx#: [id number] Sodium Chloride 0.9% 1, 80 400 000 ml @ 80 mls/hr IV . [id number] [facility] Rx#:[id number] Oral 50 360 Other: Voiding Method Diaper Diaper # Voids 2 1 1 Weight 40.4 kg 40.4 kg General: [Patient awake, alert and oriented times 3. Patient in no acute distress.] HEENT: [PERRL. EOMI. No pharyngeal erythema or exudate.] Neck: [No adenopathy.] Cardiac: [Heart regular in rate and rhythm. No S3. No S4. No clicks, rubs. No murmur.] Lungs: Basilar fine crackles bilateral expirational wheezes, left worse than right Abdomen: [No mass. No organomegaly. Bowel sounds presnt and normoactive in all 4 quadrants.] Extremes: [No edema no cyanosis no claudication normal pulses] : [] Musculoskeletal: [No joint erythema, edema or tenderness.] Skin: [No rash.] Neurologic: [No lateralizing deficits. CN II - XII grossly intact.] Lymphatic: [No adenopathy.] Results CBC & Chem 7: 01/31/17 18:29 01/31/17 18:29 Labs: Abnormal Lab Results - Last 24 Hours (Table) 01/31/17 01/31/17 01/31/17 Range/Units 18:29 18:29 18:29 WBC 19.4 H (3.8-10.6) k/uL RBC 3.65 L (3.80-5.40) m/uL Hgb 11.0 L (11.4-16.0) gm/dL RDW 16.6 H (11.5-15.5) % Neutrophils # 17.8 H (1.3-7.7) k/uL Lymphocytes # 0.6 L (1.0-4.8) k/uL APTT (22.0-30.0) sec Potassium 5.9 H (3.5-5.1) mmol/L BUN 49 H (7-17) mg/dL Creatinine 1.10 H (0.52-1.04) mg/dL Glucose 134 H (74-99) mg/dL Plasma Lactic Acid Tuan (0.7-2.0) mmol/L Total Creatine Kinase 24 L (30-135) U/L Total Protein 6.2 L (6.3-8.2) g/dL 01/31/17 01/31/17 Range/Units 18:29 21:18 WBC (3.8-10.6) k/uL RBC (3.80-5.40) m/uL Hgb (11.4-16.0) gm/dL RDW (11.5-15.5) % Neutrophils # (1.3-7.7) k/uL Lymphocytes # (1.0-4.8) k/uL APTT 20.5 L (22.0-30.0) sec Potassium (3.5-5.1) mmol/L BUN (7-17) mg/dL Creatinine (0.52-1.04) mg/dL Glucose (74-99) mg/dL Plasma Lactic Acid Tuan 0.6 L (0.7-2.0) mmol/L Total Creatine Kinase (30-135) U/L Total Protein (6.3-8.2) g/dL Chest x-ray: report reviewed Thrombosis Risk Factor Assmnt - DVT/VTE Prophylaxis DVT/VTE Prophylaxis: Low risk, early ambulation encouraged - Choose All That Apply Each Factor Represents 1 point: Abnormal pulmonary function (COPD) Each Risk Factor Represents 3 Points: Age 75 years or older Thrombosis Risk Factor Assessment Total Risk Factor Score: 4 Thrombosis Risk Factor Assessment Level: Moderate Risk Assessment and Plan Plan: Assessment and plan : #1 acute community-acquired pneumonia left lower lobe #2 acute exacerbation of mild intermittent asthma #3 history of right upper lobe pulmonary nodule which is been stable measuring 5 mm being followed by pulmonary medicine on an outpatient basis 4 history of multiple comorbidities including hypertension chronic anemia myelodysplasia osteoarthritis kyphoscoliosis chronic cervical pain and chronic cystitis Plan: Will continue bronchodilators antibiotics and steroids Patient will be evaluated by both Dr. Schafer pulmonary medicine and Dr. Washington tomorrow We'll continue DuoNeb updrafts 4 times daily will continue Levaquin and Solu- Medrol added Symbicort per pulmonary medicine Reevaluate in the morning Time with Patient: Greater than 30
[2017-02-01 16:36] LABS: Glucose,Whole Blood 173 mg/dL (75-99)
[2017-02-01] MEDS ORDERED: SYMBICORT 160-4.5 MCG INHALER INHALATION SCH (20:00)
[2017-02-01] MEDS ORDERED: LEVALBUTEROL NEB 1.25 MG/3 ML AMP INHALATION SCH (20:00)
[2017-02-01] MEDS: LATANOPROST 0.005% OPHTH DROPS 2.5 ML BTL BOTH EYES SCH (20:35)
[2017-02-01] MEDS: BRIMONIDINE TARTRATE 0.2% DROPS 5 ML BTL BOTH EYES SCH (20:50)
[2017-02-01] MEDS: SYMBICORT 160-4.5 MCG INHALER INHALATION SCH (20:52)
[2017-02-01 20:53] LABS: Glucose,Whole Blood 116 mg/dL (75-99)
[2017-02-01] MEDS ORDERED: LEVOFLOXACIN 750 MG TAB PO SCH (21:00)
[2017-02-01] MEDS: TEMAZEPAM 15 MG CAP PO PRN (23:01)
[2017-02-02 05:47] LABS: Glucose,Whole Blood 158 mg/dL (75-99)
[2017-02-02] MEDS: INSULIN LISPRO (humaLOG) 300 UNIT/3 ML VIAL SQ SCH ×4 (06:35→21:33)
[2017-02-02] MEDS: IPRATROPIUM-ALBUTEROL 3 ML NEB INHALATION SCH ×4 (08:39→20:01)
[2017-02-02] MEDS: SYMBICORT 160-4.5 MCG INHALER INHALATION SCH ×2 (08:39→20:01)
[2017-02-02] MEDS: methylPREDNISolone SOD SUCCI 40 MG/ML 1 ML VIAL IV SCH ×3 (09:02→23:46)
[2017-02-02] MEDS: SODIUM CHLORIDE 0.9% 1,000 ML IV SCH ×2 (09:02→23:54)
[2017-02-02] MEDS: BRIMONIDINE TARTRATE 0.2% DROPS 5 ML BTL BOTH EYES SCH ×2 (09:03→21:33)
[2017-02-02] MEDS: amLODIPine 5 MG TAB PO SCH (09:03)
[2017-02-02] MEDS: ASPIRIN 81 MG CHEW PO SCH (09:03)
[2017-02-02] MEDS: cycloSPORINE 0.05% OPHTH 0.4 ML DROPERETTE BOTH EYES SCH ×2 (09:04→21:33)
[2017-02-02] MEDS: FLUTICASONE 50MCG/SPRAY NASAL 16GM EA NOSTRIL SCH ×2 (09:04→21:33)
[2017-02-02] MEDS: MELOXICAM 7.5 MG TAB PO SCH (09:05)
[2017-02-02] MEDS: guaiFENesin 600 MG TABLET.ER PO SCH (09:05)
[2017-02-02] MEDS: METOPROLOL TARTRATE 25 MG TAB PO SCH ×2 (09:06→21:32)
[2017-02-02] MEDS: PANTOPRAZOLE 40 MG TABLET PO SCH (09:07)
[2017-02-02] MEDS: TIMOLOL 0.5% OPHTH DROPS 5 ML BTL BOTH EYES SCH ×2 (09:07→21:33)
[2017-02-02] MEDS: PIPERACILLIN-TAZOBACTAM 3.375 GM in DEXTROSE/WATER 1 50ML.BAG IVPB SCH ×3 (09:16→23:46)
[2017-02-02 11:34] VITALS: BMI 20.6
[2017-02-02 11:36] LABS: Glucose,Whole Blood 282 mg/dL (75-99)
--- NOTE | 2017-02-02 11:39 | CDI ---
In responding to this query, please exercise your independent professional judgment. The [facility] Coding Staff and Clinical Documentation Specialists appreciate your assistance in clarifying documentation, maintaining compliance with coding guidelines, accurately documenting patients condition and capturing severity of illness. The fact that a question is asked does not imply that any particular answer is desired or expected. Communication forms are a method of clarifying documentation and are not made part of the Legal Health Record. Thank you in advance for your clarification. Last Revision, May 2015 Lachelle Stringer [address] [facility] [place] [address] Documentation Clarification Form Date: 02/02/2017 11:27:00 AM From: Hanna Nolasco CCS, CCDS Admit Date: 01/31/2017 8:58:00 PM Patient Name: Hanna Bailey Visit Number: [id number] Discharge Date: Dr. Luis Isidro or Dr. Dawood Washington: Documentation of COPD is located in the ED note, the H/P & the pulmonary consult with no other specificity. History/Risk Factors: COPD, Asthma (mild intermittent asthma) and Stable RUL nodule. Recently completed antibiotics and oral steroids for Bronchitis. Clinical Indicators: Admitted with acute community acquired pneumonia LLL & acute exacerbation mild intermittent asthma. CXR: Borderline heart size w/chronic parenchymal changes, possible chronic bronchitis/asthma or COPD, patchy atelectasis or early infiltrate left base, severe scoliosis. Vital Signs: T 98.5, P 121, R 20, BP 167/80, PO 95 ra Lung and Respiratory Assessment: SOB, cough & wheezing. Treatment: Albuterol INH, IV fluids, IV Solumedrol, IV Levaquin, Pneumonia Protocol, Nasal [place], O2 2Lnc. Pulmonary consult. In your professional opinion, can you please clarify if the above findings and treatment signify any of the following? Acute Exacerbation of Chronic Obstructive Pulmonary Disease (COPD) Acute on Chronic Obstructive Asthma Acute on chronic bronchitis Chronic obstructive pulmonary disease with acute lower respiratory infection Emphysema Unable to determine Other condition, please specify Please document in your progress notes and discharge summary in order to capture severity of illness and risk of mortality. Include clinical findings that support your diagnosis. FYI: Press F11 to launch patient chart. __X___ Place X here if this finding has no clinical significance, is not applicable or if you are not able to provide any additional documentation. Thank You. KENNEDY
[2017-02-02] MEDS: CALCIUM CARB-VIT D 500MG-200UN 1 EACH TAB PO SCH (12:01)
[2017-02-02] MEDS: CYANOCOBALAMIN 500 MCG TAB PO SCH (12:01)
--- NOTE | 2017-02-02 12:17 | P.PN ---
Subjective Principal diagnosis: Left lower lobe pneumonia. This is an 86-year-old female who is primarily a patient of Dr. Washington and she sees Dr. Schafer for history of chronic bronchial asthma and minimal interstitial lung disease as well as stable pulmonary nodule. Patient is a lifelong nonsmoker. She is known to have history of GERD, hypertension, osteoarthritis, chronic back pain, and chronic lower extremities ulcer as well as chronic anemia. Patient presented to the ER with a few days' history of cough wheezing shortness of breath, low-grade fevers, and chills. Patient was also complaining of generalized weakness and fatigue with decreased oral intake. Chest x-ray showed chronic parenchymal changes and it also showed infiltrate in the left lower lobe area. Patient was admitted, and this consult was initiated. Since admission patient has been showing some improvement, but continues to have some cough and wheezing. Shortness of breath is slightly improved. CBC showed evidence of leukocytosis with a WBC count of 19.4, hemoglobin was 11, patient was also noted to have a picture of prerenal azotemia and hyperkalemia BUN of 49 and creatinine of 1.1, and potassium of 5.9. ProBNP level was a bit elevated, chest x-ray was more suggestive of left lower lobe pneumonia than congestive heart failure. The patient is seen again today 02/02/2017 in follow-up on the selective care unit. She is awake and alert in no acute distress. She is breathing easier today as compared to yesterday. She is maintaining good O2 saturations in the upper 90s on room air. She is afebrile. Blood cultures reveal no growth to date. Objective - Vital Signs Vital signs: Vital Signs Temp 96.2 F L 02/02/17 08:00 Pulse 86 02/02/17 11:58 Resp 18 02/02/17 08:48 BP 180/85 02/02/17 08:00 Pulse Ox 98 02/02/17 08:00 Intake & Output 02/01/17 02/02/17 02/02/17 18:59 06:59 18:59 Intake Total 650 1110 360 Balance 650 1110 360 Weight 48 kg 48 kg Intake: IV 50 1110 Piperacillin-Tazobactam 3 50 50 .375 gm In Dextrose/Water 1 50ml.bag @ 12.5 mls/hr IVPB Q8HR [facility] Rx#: [id number] Sodium Chloride 0.9% 1, 1060 000 ml @ 80 mls/hr IV . [id number] [facility] Rx#:[id number] Oral 600 360 Other: Voiding Method Diaper Diaper Diaper # Voids 1 4 - Exam Physical Exam: Revealed an 86-year-old female, chronically ill, frail looking, in no distress. HEENT:[Neck is supple.] [No neck masses.] [No thyromegaly.] [No JVD.] Chest: [Significant rhonchi and crackles noted mostly at the left base. No expiratory rhonchi or wheezes noted. Cardiac Exam: [Normal S1 and S2, no S3 gallop, no murmur.] Abdomen: [Soft, nontender, no megaly, no rebound, no guarding, normal bowel sounds.] Extremities: [Both lower extremities are wrapped with dressings related to chronic ulcerations, being followed at the wound care center.] Neurological Exam: [No focal neurologic deficit.] - Labs CBC & Chem 7: 01/31/17 18:29 02/01/17 12:59 Labs: Abnormal Lab Results - Last 24 Hours (Table) 02/01/17 02/01/17 02/02/17 Range/Units 16:34 20:42 05:46 POC Glucose (mg/dL) 173 H 116 H 158 H (75-99) mg/dL 02/02/17 Range/Units 11:34 POC Glucose (mg/dL) 282 H (75-99) mg/dL Microbiology - Last 24 Hours (Table) 01/31/17 21:13 Blood Culture - Preliminary Blood No Growth after 24 hours 01/31/17 18:29 Blood Culture - Preliminary Blood No Growth after 24 hours Assessment and Plan Plan: Impression: 1 acute community-acquired left lower lobe pneumonia 2 acute exacerbation of mild intermittent asthma 3 history of right upper lobe nodule which has been stable and measuring 5 mm, patient is being followed by Dr. Schafer on outpatient basis. 4 history of multiple comorbidities including hypertension, chronic anemia, myelodysplasia, osteoarthritis, kyphoscoliosis and chronic cervical pain, Plan: The patient was seen and evaluated by Dr. Schafer. She is improved today as compared to yesterday. We'll continue with her current pulmonary medications. We'll increase her activity as tolerated. We'll continue to follow.
--- NOTE | 2017-02-02 14:12 | P.PN ---
Subjective This is an 86-year-old female patient of [facility] and Dr. Schafer with history of chronic bronchial asthma and minimal interstitial lung disease as well as stable pulmonary nodule. Patient is nonsmoker. Patient presented to the ER with a few days' history of cough, wheezing, shortness of breath, low-grade fevers, and chills. Patient was also complaining of generalized weakness and fatigue with decreased oral intake. Chest x-ray + for new infiltrate in the left lower lobe area. Since admission, Hanna has been showing some improvement, but continues to have some cough and wheezing. Shortness of breath is slightly improved. Today she reports better appetite. Objective - Vital Signs Vital signs: Vital Signs Temp 95.0 F L 02/02/17 12:00 Pulse 71 02/02/17 12:00 Resp 16 02/02/17 12:00 BP 166/83 02/02/17 12:00 Pulse Ox 100 02/02/17 12:00 Intake & Output 02/01/17 02/02/17 02/02/17 18:59 06:59 18:59 Intake Total 650 1110 360 Balance 650 1110 360 Weight 48 kg 48 kg Intake: IV 50 1110 Piperacillin-Tazobactam 3 50 50 .375 gm In Dextrose/Water 1 50ml.bag @ 12.5 mls/hr IVPB Q8HR [facility] Rx#: [id number] Sodium Chloride 0.9% 1, 1060 000 ml @ 80 mls/hr IV . [id number] [facility] Rx#:[id number] Oral 600 360 Other: Voiding Method Diaper Diaper Diaper # Voids 1 4 - Exam GA: frail, in no distress. HEENT: Neck is supple No thyromegaly, No JVD lungs: Rhonchi and crackles noted mostly at the left base. No expiratory wheezes noted. Cardiac Exam: [Normal S1 and S2, no S3 gallop, no murmur.] Abdomen: [Soft, nontender, no megaly, no rebound, no guarding, normal bowel sounds.] Extremities lower extremities b/lare wrapped with dressings related to chronic ulcerations, being followed at the wound care center Neurological Exam: No focal neurologic deficit. - Labs CBC & Chem 7: 01/31/17 18:29 02/01/17 12:59 Labs: Abnormal Lab Results - Last 24 Hours (Table) 02/01/17 02/01/17 02/02/17 Range/Units 16:34 20:42 05:46 POC Glucose (mg/dL) 173 H 116 H 158 H (75-99) mg/dL 02/02/17 Range/Units 11:34 POC Glucose (mg/dL) 282 H (75-99) mg/dL Microbiology - Last 24 Hours (Table) 01/31/17 21:13 Blood Culture - Preliminary Blood No Growth after 24 hours 01/31/17 18:29 Blood Culture - Preliminary Blood No Growth after 24 hours - Imaging and Cardiology Active Medications Albuterol/Ipratropium (Duoneb 0.5 Mg-3 Mg/3 Ml Soln) 3 ml INHALATION RT-QID PRN PRN Reason: Shortness Of Breath Or Wheezing Albuterol/Ipratropium (Duoneb 0.5 Mg-3 Mg/3 Ml Soln) 3 ml INHALATION RT-QID [facility] Last Admin: 02/02/17 11:48 Dose: 3 ml Amlodipine Besylate (Norvasc) 5 mg PO QAM [facility] Last Admin: 02/02/17 09:03 Dose: 5 mg Aspirin (Aspirin) 81 mg PO QAM [facility] Last Admin: 02/02/17 09:03 Dose: 81 mg Brimonidine Tartrate (Alphagan P 0.2% Ophth Soln) 1 drops BOTH EYES BID [facility] Last Admin: 02/02/17 09:03 Dose: 1 drops Budesonide/Formoterol Fumarate (Symbicort 160-4.5 Mcg Inhaler) 2 puff INHALATION RT-BID [facility] Last Admin: 02/02/17 08:39 Dose: 2 puff Calcium Carbonate (Oscal 500+D) 1 each PO DAILY@1200 [facility] Last Admin: 02/02/17 12:01 Dose: 1 each Cyanocobalamin (Vitamin B-12) 1,000 mcg PO DAILY@1200 [facility] Last Admin: 02/02/17 12:01 Dose: 1,000 mcg Cyclosporine (Restasis 0.05% Ophth Soln) 1 drops BOTH EYES BID [facility] Last Admin: 02/02/17 09:04 Dose: 1 drops Cyclosporine (Neoral) 100 mg PO HS [facility] Last Admin: 02/01/17 20:34 Dose: 100 mg Fluticasone Propionate (Flonase Nasal [place]) 1 spray EA NOSTRIL BID [facility] Last Admin: 02/02/17 09:04 Dose: 1 spray Guaifenesin (Mucinex) 600 mg PO QAM [facility] Last Admin: 02/02/17 09:05 Dose: 600 mg Piperacillin/Tazobactam/ (Dextrose 3.375 gm/ IV Solution) 50 mls @ 12.5 mls/hr IVPB Q8HR [facility] Stop: 02/11/17 00:01 Last Admin: 02/02/17 09:16 Dose: 12.5 mls/hr Sodium Chloride (Saline 0.9%) 1,000 mls @ 80 mls/hr IV .[id number] [facility] Last Admin: 02/02/17 09:02 Dose: 80 mls/hr Insulin Human Lispro (Humalog) 0 unit SQ ACHS [facility] PRN Reason: Protocol Last Admin: 02/02/17 12:01 Dose: 8 unit Latanoprost (Xalatan 0.005%) 1 drops BOTH EYES [facility] Last Admin: 02/01/17 20:35 Dose: 1 drops Levofloxacin (Levaquin) 750 mg PO Q48H [facility] Meloxicam (Mobic) 7.5 mg PO QAM [facility] Last Admin: 02/02/17 09:05 Dose: 7.5 mg Methylprednisolone Sodium Succinate (Solu-Medrol) 40 mg IV Q8HR [facility] Last Admin: 02/02/17 09:02 Dose: 40 mg Metoprolol Tartrate (Lopressor) 25 mg PO BID [facility] Last Admin: 02/02/17 09:06 Dose: 25 mg Miscellaneous Information (Pneumonia Protocol Utilized) 1 each PO ONCE PRN PRN Reason: Per Protocol Pantopraz[facility]ix) [facility] [place] Admin: 02/02/17 09:07 Dose: 40 mg Temazepam (Restoril) 15 mg PO HS PRN PRN Reason: Insomnia Last Admin: 02/01/17 23:01 Dose: 15 mg Timolol Maleate (Timoptic) 1 drops BOTH EYES BID [facility] Last Admin: 02/02/17 09:07 Dose: 1 drops Assessment and Plan Plan: Impression: 1 acute left lower lobe pneumonia, community aquireded, recurrent? I will confirm in records where her last pneumonia was, Ct Chest may be warrented, meds reviewed 2 mild intermittent asthma: continue meds, pulmonolgy f/u 3 RUL Pulm nodule: stable, pulonology f/u 4 hypertension, 5 chronic anemia: recheck CBC 6 myelodysplasia, as above 7 osteoarthritis, kyphoscoliosis 8 steroid induced DM: insulin scale, accuchecks Plan: continue meds and tx, reevaluate in 24hrs
[2017-02-02 16:56] LABS: Glucose,Whole Blood 178 mg/dL (75-99)
[2017-02-02 21:24] LABS: Glucose,Whole Blood 161 mg/dL (75-99)
[2017-02-02] MEDS: LEVOFLOXACIN 750 MG TAB PO SCH (21:32)
[2017-02-02] MEDS: TEMAZEPAM 15 MG CAP PO PRN (21:32)
[2017-02-02] MEDS: LATANOPROST 0.005% OPHTH DROPS 2.5 ML BTL BOTH EYES SCH (21:33)
[2017-02-03 06:19] LABS: Glucose,Whole Blood 158 mg/dL (75-99)
[2017-02-03] MEDS: INSULIN LISPRO (humaLOG) 300 UNIT/3 ML VIAL SQ SCH ×4 (06:34→21:50)
[2017-02-03 06:57] LABS: Anisocytosis Slight; CH 30.4; CHCM 32.4; HDW 2.78; HGB 10.1 gm/dL (11.4-16.0); Immature Gran Flag Slight; MCH 30.7 pg (25.0-35.0); MCHC 32.5 g/dL (31.0-37.0); MCV 94.3 fL (80.0-100.0); Mean Platelet Volume 9.2; RBC 3.29 m/uL (3.80-5.40); RDW 16.4 % (11.5-15.5)
[2017-02-03] MEDS: IPRATROPIUM-ALBUTEROL 3 ML NEB INHALATION SCH ×4 (06:58→19:38)
[2017-02-03] MEDS: SYMBICORT 160-4.5 MCG INHALER INHALATION SCH ×2 (06:58→19:38)
[2017-02-03 06:59] LABS: Anion Gap 9 mmol/L; Blood Urea Nitrogen 41 mg/dL (7-17); Carbon Dioxide 25 mmol/L (22-30); Chloride 102 mmol/L (98-107); Glucose 160 mg/dL (74-99); Non-African American GFR(MDRD) >60 (>60 ml/min/1.73 sqM); Potassium 4.4 mmol/L (3.5-5.1); Sodium 136 mmol/L (137-145)
[2017-02-03 08:09] LABS: Add Differential Manual Differential
[2017-02-03 08:11] LABS: Nucleated Red Blood Cells 0 /100 WBC (0-0); Ovalocytes Present; Total Cells Counted 100
[2017-02-03] MEDS: SODIUM CHLORIDE 0.9% 1,000 ML IV SCH ×2 (09:39→23:57)
[2017-02-03] MEDS: PIPERACILLIN-TAZOBACTAM 3.375 GM in DEXTROSE/WATER 1 50ML.BAG IVPB SCH ×3 (09:39→23:56)
[2017-02-03] MEDS: methylPREDNISolone SOD SUCCI 40 MG/ML 1 ML VIAL IV SCH ×3 (09:39→23:57)
[2017-02-03] MEDS: METOPROLOL TARTRATE 25 MG TAB PO SCH ×2 (09:40→21:04)
[2017-02-03] MEDS: FLUTICASONE 50MCG/SPRAY NASAL 16GM EA NOSTRIL SCH ×2 (09:40→21:04)
[2017-02-03] MEDS: BRIMONIDINE TARTRATE 0.2% DROPS 5 ML BTL BOTH EYES SCH ×2 (09:41→21:04)
[2017-02-03] MEDS: guaiFENesin 600 MG TABLET.ER PO SCH (09:42)
[2017-02-03] MEDS: ASPIRIN 81 MG CHEW PO SCH (09:42)
[2017-02-03] MEDS: MELOXICAM 7.5 MG TAB PO SCH (09:42)
[2017-02-03] MEDS: PANTOPRAZOLE 40 MG TABLET PO SCH (09:43)
[2017-02-03] MEDS: TIMOLOL 0.5% OPHTH DROPS 5 ML BTL BOTH EYES SCH ×2 (09:43→21:04)
[2017-02-03] MEDS: cycloSPORINE 0.05% OPHTH 0.4 ML DROPERETTE BOTH EYES SCH ×2 (09:44→21:05)
[2017-02-03] MEDS: amLODIPine 5 MG TAB PO SCH (09:44)
[2017-02-03 11:31] LABS: Glucose,Whole Blood 273 mg/dL (75-99)
[2017-02-03] MEDS: CYANOCOBALAMIN 500 MCG TAB PO SCH (11:56)
[2017-02-03] MEDS: CALCIUM CARB-VIT D 500MG-200UN 1 EACH TAB PO SCH (11:56)
--- NOTE | 2017-02-03 13:10 | P.PN ---
Subjective This is an 86-year-old female patient of [facility] and Dr. Schafer with history of chronic bronchial asthma and minimal interstitial lung disease as well as stable pulmonary nodule. Patient is nonsmoker. Patient presented to the ER with a few days' history of cough, wheezing, shortness of breath, low-grade fevers, and chills. Patient was also complaining of generalized weakness and fatigue with decreased oral intake. Chest x-ray + for new infiltrate in the left lower lobe area. Since admission, Hanna has been showing some improvement, but continues to have some cough and wheezing. Shortness of breath is slightly improved. Today she reports better appetite. February 03, 2017: Patient is feeling slightly more weak and short of breath. She sits by the air conditioning unit and she states she feels better with it "blowing out". Dr. Schafer is on consult for pulmonology. She indicates her appetite is better. Denies bowel movement today. Objective - Vital Signs Vital signs: Vital Signs Temp 98.2 F 02/03/17 08:00 Pulse 86 02/03/17 11:25 Resp 18 02/03/17 08:00 BP 152/75 02/03/17 08:00 Pulse Ox 93 L 02/03/17 08:00 Intake & Output 02/02/17 02/03/17 02/03/17 18:59 06:59 18:59 Intake Total 960 800 720 Output Total 400 Balance 560 800 720 Weight 48 kg 43.3 kg Intake: IV 800 Sodium Chloride 0.9% 1, 800 000 ml @ 80 mls/hr IV . [id number] [facility] Rx#:[id number] Oral 960 720 Output: Urine 400 Other: Voiding Method Diaper Diaper Diaper # Voids 2 1 # Bowel Movements 0 - Exam General: The patient is awake and alert, frail, and fatigued Neck: The neck is supple, there is no thyromegaly, lymphadenopathy, tenderness or JVD. Cardiovascular: S1S2 is normal, There is a regular rate and rhythm. No murmur, rub or gallop is appreciated. Respiratory: Lungs are with poor air exchange bilaterally, there is no active wheezes this time. Gastrointestinal: Soft, non-distended, non-tender abdomen without masses or organomegaly noted. There is no rebound or guarding present. Bowel sounds are unremarkable. Musculoskeletal: Normal ROM, no tenderness, There is no pedal edema. There is no calf tenderness or swelling. No cords were appreciated. Able to ambulate with walker 20-30 feet. Neurological: CN II-XII intact, there are no obvious motor or sensory deficits. Coordination appears grossly intact. Speech is normal. Skin: Skin is warm and dry and no rashes or lesions are noted. - Labs CBC & Chem 7: 02/03/17 05:35 02/03/17 05:35 Labs: Abnormal Lab Results - Last 24 Hours (Table) 02/02/17 02/02/17 02/03/17 Range/Units 16:54 21:21 05:35 WBC 16.0 H (3.8-10.6) k/uL RBC 3.29 L (3.80-5.40) m/uL Hgb 10.1 L (11.4-16.0) gm/dL Hct 31.0 L (34.0-46.0) % RDW 16.4 H (11.5-15.5) % Neutrophils # (Manual) 14.2 H (1.3-7.7) k/uL Lymphocytes # (Manual) 0.6 L (1.0-4.8) k/uL Sodium (137-145) mmol/L BUN (7-17) mg/dL Glucose (74-99) mg/dL POC Glucose (mg/dL) 178 H 161 H (75-99) mg/dL 02/03/17 02/03/17 02/03/17 Range/Units 05:35 06:12 11:29 WBC (3.8-10.6) k/uL RBC (3.80-5.40) m/uL Hgb (11.4-16.0) gm/dL Hct (34.0-46.0) % RDW (11.5-15.5) % Neutrophils # (Manual) (1.3-7.7) k/uL Lymphocytes # (Manual) (1.0-4.8) k/uL Sodium 136 L (137-145) mmol/L BUN 41 H (7-17) mg/dL Glucose 160 H (74-99) mg/dL POC Glucose (mg/dL) 158 H 273 H (75-99) mg/dL Microbiology - Last 24 Hours (Table) 01/31/17 21:13 Blood Culture - Preliminary Blood No Growth after 48 hours 01/31/17 18:29 Blood Culture - Preliminary Blood No Growth after 48 hours Assessment and Plan Plan: Impression: 1 acute left lower lobe pneumonia, community acquired, recurrent? She'll continue on her DuoNeb, Symbicort, Solu-Medrol, Levaquin, Zosyn, guaifenesin, pulmonology following 2 mild intermittent asthma: As above, continue fluticasone 3 RUL Pulm nodule: stable, pulonology f/u 4 hypertension: Continue amlodipine, metoprolol and aspirin 5 chronic anemia: Monitor CBC 6 myelodysplasia, as above 7 osteoarthritis, kyphoscoliosis: Continue Os-Mainor plus D, meloxicam 8 steroid induced DM: insulin scale, accuchecks before meals and at bedtime 9: Glaucoma: Continue timolol, latanoprost, cyclosporine, Alphagan Plan: Medications and treatments. We'll repeat laboratory studies in a.m. I will reevaluate next 24 hours.
--- NOTE | 2017-02-03 13:55 | XR ---
EXAMINATION TYPE: XR chest 2V DATE OF EXAM: 02/03/2017 COMPARISON: Chest x-ray February 01, 2017 HISTORY: Pneumonia progress study TECHNIQUE: Frontal and lateral views of the chest are obtained. FINDINGS: Chronic parenchymal changes are redemonstrated. There is no new focal air space opacity, p leural effusion, or pneumothorax seen bilaterally. The cardiac silhouette size is within normal limi ts with atherosclerotic thoracic aorta causing mass effect on trachea. The osseous structures are d emineralized. Advanced degenerative change bilateral glenohumeral joints is seen. There are compressi on fractures with attempted vertebroplasty, paraspinal cement is redemonstrated on the right. IMPRESSION: Chronic parenchymal changes without suspicious acute infiltrate currently.
--- NOTE | 2017-02-03 17:32 | PN ---
This is an 86 year old female with a history of asthma, minimal interstitial lung disease and pulmonary nodule. She was admitted back on January 31. Feeling less well today. She has hsitory of community acquired pneumonia in the left lower lobe. Mild asthma exacerbation and some other medical problems all of which are stable at this time including hypertension, chronic anemia, myelodysplasia, osteoarthritis, kyphoscoliosis and chronic neck pain. The patient states she is feeling less well today then she did yesterday. Really cannot be very specific. Was able to produce some sputum that will be sent for analysis. May be a bit more short of breath and a bit more chest congestion. No chest pain. No fever. No chills. No nausea or vomiting or diarrhea. Current vital signs include temperature 98.2, heart rate 80, respiratory rate 18 , blood pressure 152/75, mean 100. Room air saturation 93%. Appears in no acute distress. HEENT: Examination is grossly unremarkable. Mucous membranes are moist. No oral lesions. Neck is supple. Full range of motion. No adenopathy or thyromegaly. Neck veins are flat. Cardiovascular examination reveals an irregular rhythm and rate. Heart rate about 90 to 100 beats a minute. Maybe some premature beats. Just does not sound regular. No murmur. S1, S2 normal. Lungs reveal a few scattered coarse rhonchi. Breath sounds are diminished. There is prolongation. The patient wheezes a bit. Abdomen soft. Bowel sounds are heard. Extremities are intact. No clubbing or cyanosis. No edema. Skin without significant rash. Microbiology including blood sampling is all negative. Sputum will be sent today. Labs are reviewed. White count 16, hemoglobin 10.1, hematocrit 31.0, platelet count 299,000. Sodium 136, potassium 4.4, chloride 102, CO2 25, BUN and creatinine 41 and 0.8. Most recent chest x-ray was done on the and showed left basilar opacity. Medications were reviewed. From the pulmonary standpoint she is on Symbicort, updrafts with albuterol and Atrovent, Mucinex, Levaquin and reduced dose of Solu-Medrol at 40 q8. These are appropriate. ASSESSMENT: 1. Pneumonia, left lower lobe, community acquired. 2. Mild exacerbation of the patient's preexisting chronic bronchial asthma. 3. Mild interstitial fibrosis. 4. Right upper lobe pulmonary nodule which has been stable. 5. History of multiple medical problems including hypertension, chronic anemia , myelodysplastic syndrome, osteoarthritis, kyphoscoliosis and chronic neck pain. PLAN: The patient will have an EKG and chest x-ray performed. Additional recommendations and suggestions are forthcoming. Prognosis is guarded. We will continue to follow closely. KENNEDY
[2017-02-03 17:45] LABS: Glucose,Whole Blood 204 mg/dL (75-99)
[2017-02-03] MEDS: LATANOPROST 0.005% OPHTH DROPS 2.5 ML BTL BOTH EYES SCH (21:04)
[2017-02-03 21:49] LABS: Glucose,Whole Blood 112 mg/dL (75-99)
[2017-02-03] MEDS: TEMAZEPAM 15 MG CAP PO PRN (22:17)
[2017-02-04 05:50] LABS: Glucose,Whole Blood 142 mg/dL (75-99)
[2017-02-04 06:00] LABS: Anisocytosis Slight; CH 30.4; CHCM 33.3; HCT 31.5 % (34.0-46.0); HDW 2.88; HGB 10.4 gm/dL (11.4-16.0); Immature Gran Flag Marked; MCH 30.3 pg (25.0-35.0); MCV 91.8 fL (80.0-100.0); Mean Platelet Volume 9.1; RBC 3.43 m/uL (3.80-5.40); RDW 16.4 % (11.5-15.5); WBC 24.2 k/uL (3.8-10.6); WBC (Perox) 24.43
[2017-02-04 06:11] LABS: Anion Gap 10 mmol/L; Blood Urea Nitrogen 46 mg/dL (7-17); Carbon Dioxide 28 mmol/L (22-30); Chloride 101 mmol/L (98-107); Glucose 130 mg/dL (74-99); Non-African American GFR(MDRD) >60 (>60 ml/min/1.73 sqM); Potassium 4.1 mmol/L (3.5-5.1); Sodium 139 mmol/L (137-145)
[2017-02-04 06:30] LABS: Add Differential Manual Differential
[2017-02-04 06:34] LABS: Large Platelets Present; Myelocytes % 0.5 %; Nucleated Red Blood Cells 0 /100 WBC (0-0); Ovalocytes Present; Total Cells Counted 200
[2017-02-04] MEDS: INSULIN LISPRO (humaLOG) 300 UNIT/3 ML VIAL SQ SCH ×4 (06:34→21:08)
[2017-02-04] MEDS: SYMBICORT 160-4.5 MCG INHALER INHALATION SCH ×2 (08:22→19:54)
[2017-02-04] MEDS: IPRATROPIUM-ALBUTEROL 3 ML NEB INHALATION SCH ×4 (08:22→19:55)
[2017-02-04] MEDS: ASPIRIN 81 MG CHEW PO SCH (09:17)
[2017-02-04] MEDS: methylPREDNISolone SOD SUCCI 40 MG/ML 1 ML VIAL IV SCH ×2 (09:17→20:38)
[2017-02-04] MEDS: PIPERACILLIN-TAZOBACTAM 3.375 GM in DEXTROSE/WATER 1 50ML.BAG IVPB SCH ×3 (09:17→23:33)
[2017-02-04] MEDS: amLODIPine 5 MG TAB PO SCH (09:17)
[2017-02-04] MEDS: SODIUM CHLORIDE 0.9% 1,000 ML IV SCH (09:17)
[2017-02-04] MEDS: guaiFENesin 600 MG TABLET.ER PO SCH (09:18)
[2017-02-04] MEDS: cycloSPORINE 0.05% OPHTH 0.4 ML DROPERETTE BOTH EYES SCH ×2 (09:18→20:39)
[2017-02-04] MEDS: BRIMONIDINE TARTRATE 0.2% DROPS 5 ML BTL BOTH EYES SCH ×2 (09:18→20:38)
[2017-02-04] MEDS: FLUTICASONE 50MCG/SPRAY NASAL 16GM EA NOSTRIL SCH ×2 (09:18→20:39)
[2017-02-04] MEDS: MELOXICAM 7.5 MG TAB PO SCH (09:18)
[2017-02-04] MEDS: METOPROLOL TARTRATE 25 MG TAB PO SCH ×2 (09:19→20:38)
[2017-02-04] MEDS: PANTOPRAZOLE 40 MG TABLET PO SCH (09:19)
[2017-02-04] MEDS: TIMOLOL 0.5% OPHTH DROPS 5 ML BTL BOTH EYES SCH ×2 (09:19→20:38)
[2017-02-04 11:33] LABS: Glucose,Whole Blood 201 mg/dL (75-99)
[2017-02-04] MEDS: CALCIUM CARB-VIT D 500MG-200UN 1 EACH TAB PO SCH (11:41)
[2017-02-04] MEDS: CYANOCOBALAMIN 500 MCG TAB PO SCH (11:41)
[2017-02-04] MEDS ORDERED: methylPREDNISolone SOD SUCCI 40 MG/ML 1 ML VIAL IV SCH (12:30)
--- NOTE | 2017-02-04 13:33 | P.PN ---
Subjective Principal diagnosis: Left lower lobe pneumonia. This is an 86-year-old female who is primarily a patient of Dr. Washington and she sees Dr. Schafer for history of chronic bronchial asthma and minimal interstitial lung disease as well as stable pulmonary nodule. Patient is a lifelong nonsmoker. She is known to have history of GERD, hypertension, osteoarthritis, chronic back pain, and chronic lower extremities ulcer as well as chronic anemia. Patient presented to the ER with a few days' history of cough wheezing shortness of breath, low-grade fevers, and chills. Patient was also complaining of generalized weakness and fatigue with decreased oral intake. Chest x-ray showed chronic parenchymal changes and it also showed infiltrate in the left lower lobe area. Patient was admitted, and this consult was initiated. Since admission patient has been showing some improvement, but continues to have some cough and wheezing. Shortness of breath is slightly improved. CBC showed evidence of leukocytosis with a WBC count of 19.4, hemoglobin was 11, patient was also noted to have a picture of prerenal azotemia and hyperkalemia BUN of 49 and creatinine of 1.1, and potassium of 5.9. ProBNP level was a bit elevated, chest x-ray was more suggestive of left lower lobe pneumonia than congestive heart failure. The patient is seen again today 02/02/2017 in follow-up on the selective care unit. She is awake and alert in no acute distress. She is breathing easier today as compared to yesterday. She is maintaining good O2 saturations in the upper 90s on room air. She is afebrile. Blood cultures reveal no growth to date. The patient is seen again today in follow-up 02/04/2017. She is currently sitting up in the chair at the bedside. She is awake and alert in no acute distress. She is breathing easier today as compared to yesterday. Her follow- up chest x-ray revealed evidence of chronic changes but no acute infiltrates remaining in the left lower lobe. She is maintaining good O2 saturations in the high 90s on room air. She is afebrile. Objective - Vital Signs Vital signs: Vital Signs Temp 97.2 F L 02/04/17 12:00 Pulse 97 02/04/17 12:00 Resp 16 02/04/17 12:00 BP 166/87 02/04/17 12:00 Pulse Ox 98 02/04/17 12:00 Intake & Output 02/03/17 02/04/17 02/04/17 18:59 06:59 18:59 Intake Total 1828 800 240 Balance 1828 800 240 Weight 43.4 kg Intake: IV 740 800 Piperacillin-Tazobactam 3 100 .375 gm In Dextrose/Water 1 50ml.bag @ 12.5 mls/hr IVPB Q8HR [facility] Rx#: [id number] Sodium Chloride 0.9% 1, 640 800 000 ml @ 80 mls/hr IV . [id number] [facility] Rx#:[id number] Oral 1088 240 Other: Voiding Method Diaper Diaper # Voids 1 1 1 # Bowel Movements 1 - Exam Physical Exam: Revealed an 86-year-old female, chronically ill, frail looking, in no distress. HEENT:[Neck is supple.] [No neck masses.] [No thyromegaly.] [No JVD.] Chest: [Clear anteriorly posteriorly.. No expiratory rhonchi or wheezes noted. Cardiac Exam: [Normal S1 and S2, no S3 gallop, no murmur.] Abdomen: [Soft, nontender, no megaly, no rebound, no guarding, normal bowel sounds.] Extremities: [Both lower extremities are wrapped with dressings related to chronic ulcerations, being followed at the wound care center.] Neurological Exam: [No focal neurologic deficit.] - Labs CBC & Chem 7: 02/04/17 05:27 02/04/17 05:23 Labs: Abnormal Lab Results - Last 24 Hours (Table) 02/03/17 02/03/17 02/04/17 Range/Units 17:42 21:45 05:23 WBC (3.8-10.6) k/uL RBC (3.80-5.40) m/uL Hgb (11.4-16.0) gm/dL Hct (34.0-46.0) % RDW (11.5-15.5) % Neutrophils # (Manual) (1.3-7.7) k/uL Lymphocytes # (Manual) (1.0-4.8) k/uL BUN 46 H (7-17) mg/dL Glucose 130 H (74-99) mg/dL POC Glucose (mg/dL) 204 H 112 H (75-99) mg/dL 02/04/17 02/04/17 02/04/17 Range/Units 05:27 05:44 11:26 WBC 24.2 H (3.8-10.6) k/uL RBC 3.43 L (3.80-5.40) m/uL Hgb 10.4 L (11.4-16.0) gm/dL Hct 31.5 L (34.0-46.0) % RDW 16.4 H (11.5-15.5) % Neutrophils # (Manual) 23.0 H (1.3-7.7) k/uL Lymphocytes # (Manual) 0.4 L (1.0-4.8) k/uL BUN (7-17) mg/dL Glucose (74-99) mg/dL POC Glucose (mg/dL) 142 H 201 H (75-99) mg/dL Microbiology - Last 24 Hours (Table) 01/31/17 21:13 Blood Culture - Preliminary Blood No Growth after 72 hours 01/31/17 18:29 Blood Culture - Preliminary Blood No Growth after 72 hours Assessment and Plan Plan: Impression: 1 acute community-acquired left lower lobe pneumonia, resolved. 2 acute exacerbation of mild intermittent asthma 3 history of right upper lobe nodule which has been stable and measuring 5 mm, patient is being followed by Dr. Schafer on outpatient basis. 4 history of multiple comorbidities including hypertension, chronic anemia, myelodysplasia, osteoarthritis, kyphoscoliosis and chronic cervical pain, Plan: The patient was seen and evaluated by Dr. Schafer. She is improved today as compared to yesterday. We'll discontinue her IV Solu-Medrol and place her on a prednisone taper. We'll increase her activity as tolerated. Plan for probable discharge in the a.m. We'll continue to follow.
--- NOTE | 2017-02-04 14:27 | P.PN ---
Subjective This is an 86-year-old female patient of [facility] and Dr. Schafer with history of chronic bronchial asthma and minimal interstitial lung disease as well as stable pulmonary nodule. Patient is nonsmoker. Patient presented to the ER with a few days' history of cough, wheezing, shortness of breath, low-grade fevers, and chills. Patient was also complaining of generalized weakness and fatigue with decreased oral intake. Chest x-ray + for new infiltrate in the left lower lobe area. Since admission, Hanna has been showing some improvement, but continues to have some cough and wheezing. Shortness of breath is slightly improved. Today she reports better appetite. February 03, 2017: Patient is feeling slightly more weak and short of breath. She sits by the air conditioning unit and she states she feels better with it "blowing out". Dr. Schafer is on consult for pulmonology. She indicates her appetite is better. Denies bowel movement today. 02/04/2017: pt breathing better, c/o some weakness, but ambulates with walker and wants to go home and not ecf.C/o chest pain with cough, midsternal. Objective - Vital Signs Vital signs: Vital Signs Temp 97.2 F L 02/04/17 12:00 Pulse 97 02/04/17 12:00 Resp 16 02/04/17 12:00 BP 166/87 02/04/17 12:00 Pulse Ox 98 02/04/17 12:00 Intake & Output 02/03/17 02/04/17 02/04/17 18:59 06:59 18:59 Intake Total 1828 800 240 Balance 1828 800 240 Weight 43.4 kg Intake: IV 740 800 Piperacillin-Tazobactam 3 100 .375 gm In Dextrose/Water 1 50ml.bag @ 12.5 mls/hr IVPB Q8HR RANJITH Rx#: [id number] Sodium Chloride 0.9% 1, 640 800 000 ml @ 80 mls/hr IV . [id number] RANJITH Rx#:[id number] Oral 1088 240 Other: Voiding Method Diaper Diaper # Voids 1 1 1 # Bowel Movements 1 - Exam General: The patient is awake and alert, frail, and fatigued Neck: The neck is supple, there is no thyromegaly, lymphadenopathy, tenderness or JVD. Cardiovascular: S1S2 is normal, There is a regular rate and rhythm. No murmur, rub or gallop is appreciated. Respiratory: Lungs are coarse with poor air exchange bilaterally, there is no active wheezes this time. Gastrointestinal: Soft, non-distended, non-tender abdomen without masses or organomegaly noted. There is no rebound or guarding present. Bowel sounds are unremarkable. Musculoskeletal: Normal ROM, no tenderness, There is no pedal edema. There is no calf tenderness or swelling. No cords were appreciated. Able to ambulate with walker 20-30 feet. Neurological: CN II-XII intact, there are no obvious motor or sensory deficits. Coordination appears grossly intact. Speech is normal. Skin: Skin is warm and dry and no rashes or lesions are noted. - Labs CBC & Chem 7: 02/04/17 05:27 02/04/17 05:23 Labs: Abnormal Lab Results - Last 24 Hours (Table) 02/03/17 02/03/17 02/04/17 Range/Units 17:42 21:45 05:23 WBC (3.8-10.6) k/uL RBC (3.80-5.40) m/uL Hgb (11.4-16.0) gm/dL Hct (34.0-46.0) % RDW (11.5-15.5) % Neutrophils # (Manual) (1.3-7.7) k/uL Lymphocytes # (Manual) (1.0-4.8) k/uL BUN 46 H (7-17) mg/dL Glucose 130 H (74-99) mg/dL POC Glucose (mg/dL) 204 H 112 H (75-99) mg/dL 02/04/17 02/04/17 02/04/17 Range/Units 05:27 05:44 11:26 WBC 24.2 H (3.8-10.6) k/uL RBC 3.43 L (3.80-5.40) m/uL Hgb 10.4 L (11.4-16.0) gm/dL Hct 31.5 L (34.0-46.0) % RDW 16.4 H (11.5-15.5) % Neutrophils # (Manual) 23.0 H (1.3-7.7) k/uL Lymphocytes # (Manual) 0.4 L (1.0-4.8) k/uL BUN (7-17) mg/dL Glucose (74-99) mg/dL POC Glucose (mg/dL) 142 H 201 H (75-99) mg/dL Microbiology - Last 24 Hours (Table) 01/31/17 21:13 Blood Culture - Preliminary Blood No Growth after 72 hours 01/31/17 18:29 Blood Culture - Preliminary Blood No Growth after 72 hours Assessment and Plan Plan: Impression: 1 acute left lower lobe pneumonia, community acquired, recurrent? She'll continue on her DuoNeb, Symbicort, decrease Solu-Medrol to 30mg q12h, Levaquin, Zosyn, guaifenesin, pulmonology following 2 mild intermittent asthma: As above, continue fluticasone 3 RUL Pulm nodule: stable, pulonology f/u 4 hypertension: Continue amlodipine, metoprolol and aspirin 5 chronic anemia: Monitor CBC 6 myelodysplasia, as above 7 osteoarthritis, kyphoscoliosis: Continue Os-Mainor plus D, meloxicam 8 steroid induced DM: insulin scale, accuchecks before meals and at bedtime 9: Glaucoma: Continue timolol, latanoprost, cyclosporine, Alphagan 10 LLE venous stasis ulcer: wound center f/u Plan: continue Medications and treatments. We'll repeat laboratory studies in a.m. plan d/c in am
[2017-02-04 16:55] LABS: Glucose,Whole Blood 242 mg/dL (75-99)
[2017-02-04] MEDS: LEVOFLOXACIN 750 MG TAB PO SCH (20:38)
[2017-02-04] MEDS: LATANOPROST 0.005% OPHTH DROPS 2.5 ML BTL BOTH EYES SCH (20:39)
[2017-02-04 20:55] LABS: Glucose,Whole Blood 131 mg/dL (75-99)
[2017-02-04] MEDS: TEMAZEPAM 15 MG CAP PO PRN (22:21)
[2017-02-05] MEDS: SODIUM CHLORIDE 0.9% 1,000 ML IV SCH ×2 (00:01→08:48)
[2017-02-05 04:59] VITALS: RESP 16
[2017-02-05 05:52] LABS: Glucose,Whole Blood 155 mg/dL (75-99)
[2017-02-05] MEDS: INSULIN LISPRO (humaLOG) 300 UNIT/3 ML VIAL SQ SCH (06:48)
[2017-02-05] MEDS: SYMBICORT 160-4.5 MCG INHALER INHALATION SCH (06:49)
[2017-02-05] MEDS: IPRATROPIUM-ALBUTEROL 3 ML NEB INHALATION SCH (06:49)
[2017-02-05] MEDS: PIPERACILLIN-TAZOBACTAM 3.375 GM in DEXTROSE/WATER 1 50ML.BAG IVPB SCH (08:45)
[2017-02-05] MEDS: TIMOLOL 0.5% OPHTH DROPS 5 ML BTL BOTH EYES SCH (08:45)
[2017-02-05] MEDS: BRIMONIDINE TARTRATE 0.2% DROPS 5 ML BTL BOTH EYES SCH (08:46)
[2017-02-05] MEDS: FLUTICASONE 50MCG/SPRAY NASAL 16GM EA NOSTRIL SCH (08:46)
[2017-02-05] MEDS: cycloSPORINE 0.05% OPHTH 0.4 ML DROPERETTE BOTH EYES SCH (08:46)
[2017-02-05] MEDS: MELOXICAM 7.5 MG TAB PO SCH (08:47)
[2017-02-05] MEDS: guaiFENesin 600 MG TABLET.ER PO SCH (08:47)
[2017-02-05] MEDS: methylPREDNISolone SOD SUCCI 40 MG/ML 1 ML VIAL IV SCH (08:47)
[2017-02-05] MEDS: ASPIRIN 81 MG CHEW PO SCH (08:47)
[2017-02-05] MEDS: amLODIPine 5 MG TAB PO SCH (08:47)
[2017-02-05] MEDS: PANTOPRAZOLE 40 MG TABLET PO SCH (08:47)
[2017-02-05] MEDS: METOPROLOL TARTRATE 25 MG TAB PO SCH (08:47)
[2017-02-05 08:57] VITALS: BP 156/81; PULSE 105; TEMP 97.5
--- NOTE | 2017-02-05 09:33 | P.DS ---
Providers Date of admission: 01/31/17 20:58 Expected date of discharge: 02/05/17 Attending physician: Luis Isidro Consults: 01/31/17 20:53 Consult Physician Routine Consulting Provider: Noah Schafer Consult Reason/Comments: Pneumonia, dyspnea Do you want consulting provider notified?: Yes Primary care physician: [facility] Course: This is an 86-year-old female patient of [facility] and Dr. Schafer with history of chronic bronchial asthma and minimal interstitial lung disease as well as stable pulmonary nodule. Patient is nonsmoker. Patient presented to the ER with a few days' history of cough, wheezing, shortness of breath, low-grade fevers, and chills. Patient was also complaining of generalized weakness and fatigue with decreased oral intake. Chest x-ray + for new infiltrate in the left lower lobe area. Since admission, Hanna has been showing some improvement, but continues to have some cough and wheezing. Shortness of breath is slightly improved. Today she reports better appetite. Patient is feeling slightly more weak and short of breath. She sits by the air conditioning unit and she states she feels better with it "blowing out". Dr. Schafer is on consult for pulmonology. She indicates her appetite is better. Denies bowel movement today. pt breathing better, c/o some weakness, but ambulates with walker and wants to go home and not ecf.C/o chest pain with cough, midsternal. 02/05/2017: pt feeling much better. she now feels ready to go home. He was instructed to stop the wound center for a reevaluation regarding wound before leaving. 1 acute left lower lobe pneumonia, community acquired, 2 mild intermittent asthma 3 RUL Pulm nodule 4 hypertension 5 chronic anemia 6 myelodysplasia 7 osteoarthritis, kyphoscoliosis 8 steroid induced DM 9: Glaucoma 10 LLE venous stasis ulcer Patient Condition at Discharge: Stable Plan - Discharge Summary New Discharge Prescriptions: New Levofloxacin [Levaquin] 750 mg PO Q48H #5 tab Continue amLODIPine [Norvasc] 5 mg PO QAM Cyclosporine, Modified [Cyclosporine Modified] 100 mg PO HS Aspirin 81 mg PO QAM Latanoprost Ophth [Xalatan 0.005%] 1 drop BOTH EYES HS Fluticasone Nasal [place] [Flonase Nasal [place]] 1 spray EA NOSTRIL BID Metoprolol Tartrate [Lopressor] 25 mg PO BID tab Brimonidine Tartrate [Alphagan P 0.2% Ophth Soln] 1 drop BOTH EYES BID guaiFENesin [Mucinex] 600 mg PO QAM Omeprazole 20 mg PO QAM Celecoxib [CeleBREX] 200 mg PO QAM Calcium Carbonate [Calcium] 600 mg PO QAM Budesonide-Formot 160-4.5 Mcg [Symbicort 160-4.5 Mcg Inhaler] 2 puff INHALATION RT-BID #3 puff predniSONE See Taper PO DAILY cycloSPORINE 0.05% OPHTH SOLN [Restasis] 1 drop BOTH EYES BID Betaxolol HCl [Betoptic S 0.5% Ophth Soln] 1 drop BOTH EYES BID Azithromycin [Zithromax] 500 mg PO DAILY Tiotropium [place] [Spiriva] 1 cap INHALATION RT-DAILY Levalbuterol Nebulized [Xopenex Nebulized] 1.25 mg INHALATION RT-BID Cyanocobalamin (Vitamin B-12) [Vitamin B-12] 1,000 mcg PO DAILY Discharge Medication List Cyclosporine, Modified [Cyclosporine Modified] 100 mg PO HS 02/07/14 [History] amLODIPine [Norvasc] 5 mg PO QAM 02/07/14 [History] Aspirin 81 mg PO QAM 05/09/15 [History] Latanoprost Ophth [Xalatan 0.005%] 1 drop BOTH EYES HS 11/02/15 [History] Fluticasone Nasal [place] [Flonase Nasal [place]] 1 spray EA NOSTRIL BID 11/09/15 [ History] Metoprolol Tartrate [Lopressor] 25 mg PO BID tab 11/14/15 [Rx] Brimonidine Tartrate [Alphagan P 0.2% Ophth Soln] 1 drop BOTH EYES BID 12/17/15 [History] Calcium Carbonate [Calcium] 600 mg PO QAM 06/28/16 [History] Celecoxib [CeleBREX] 200 mg PO QAM 06/28/16 [History] Omeprazole 20 mg PO QAM 06/28/16 [History] guaiFENesin [Mucinex] 600 mg PO QAM 06/28/16 [History] Budesonide-Formot 160-4.5 Mcg [Symbicort 160-4.5 Mcg Inhaler] 2 puff INHALATION RT-BID #3 puff 07/01/16 [Rx] Azithromycin [Zithromax] 500 mg PO DAILY 01/31/17 [History] Betaxolol HCl [Betoptic S 0.5% Ophth Soln] 1 drop BOTH EYES BID 01/31/17 [ History] Cyanocobalamin (Vitamin B-12) [Vitamin B-12] 1,000 mcg PO DAILY 01/31/17 [ History] Levalbuterol Nebulized [Xopenex Nebulized] 1.25 mg INHALATION RT-BID 01/31/17 [ History] Tiotropium [place] [Spiriva] 1 cap INHALATION RT-DAILY 01/31/17 [History] cycloSPORINE 0.05% OPHTH SOLN [Restasis] 1 drop BOTH EYES BID 01/31/17 [History] predniSONE See Taper PO DAILY 01/31/17 [History] Levofloxacin [Levaquin] 750 mg PO Q48H #5 tab 02/05/17 [Rx] Follow up Appointment(s)/Referral(s): Dawood Washington MD [Primary Care Provider] - 1-2 days Patient Instructions/Handouts: Community Acquired Pneumonia (DC) Discharge Disposition: HOME WITH HOME HEALTH SERVICES
--- NOTE | 2017-02-12 14:41 | CDI ---
In responding to this query, please exercise your independent professional judgment. The [facility] Coding Staff and Clinical Documentation Specialists appreciate your assistance in clarifying documentation, maintaining compliance with coding guidelines, accurately documenting patients condition and capturing severity of illness. The fact that a question is asked does not imply that any particular answer is desired or expected. Communication forms are a method of clarifying documentation and are not made part of the Legal Health Record. Thank you in advance for your clarification. Last Revision, May 2015 Lachelle Stringer [address] [facility] [place] [address] Documentation Clarification Form Date: 02/12/2017 2:29:00 PM From: Majo Magallanes Admit Date: 01/31/2017 8:58:00 PM Patient Name: Hanna Bailey Visit Number: [id number] Discharge Date: 02/05/17 Dr. Dawood Washington HP states this 86 year old female has a history of COPD and intermittent mild asthma now with dyspnea and cough. In your professional opinion, can you please clarify if this patient has COPD in addition to intermittent mild asthma or is the documentation of COPD under Past Medical Hx incorrect. Please document addedum in your discharge summary in order to capture severity of illness and risk of mortality. FYI: Press F11 to launch patient chart. If you have a question about this query, please contact Ijeoma Helms, Auto [employer]ester, Lachelle Stringer at [phone] betweeen 8am and 5pm. This is an error MTDD
--- NOTE | 2017-03-06 09:31 | CDI ---
In responding to this query, please exercise your independent professional judgment. The [facility] Coding Staff and Clinical Documentation Specialists appreciate your assistance in clarifying documentation, maintaining compliance with coding guidelines, accurately documenting patients condition and capturing severity of illness. The fact that a question is asked does not imply that any particular answer is desired or expected. Communication forms are a method of clarifying documentation and are not made part of the Legal Health Record. Thank you in advance for your clarification. Last Revision, May 2015 Lachelle Stringer [address] [facility] [place] [address] Documentation Clarification Form Date: 02/12/2017 2:29:00 PM From: Majo Magallanes Admit Date: 01/31/2017 8:58:00 PM Patient Name: Hanna Bailey Visit Number: [id number] Discharge Date: 02/05/17 Dr. Dawood Washington HP states this 86 year old female has a history of COPD and intermittent mild asthma now with dyspnea and cough. In your professional opinion, can you please clarify if this patient has COPD or is the documentation of COPD under Past Medical Hx incorrect. Please document addedum in your discharge summary in order to capture severity of illness and risk of mortality. FYI: Press F11 to launch patient chart. If you have a question about this query, please contact Ijeoma Helms, [employer], Lachelle Stringer at [phone] betweeen 8am and 5pm. no patiejnt DOES NOT HAVE COPD PER PULMONOLOGY!! MTDD
== END 2017-02-05 10:44 | disposition home health service (06) | DRG 194 ==
LOC: EC 17:58 → 6SEL 20:58
PROVIDERS: ADMIT Family Medicine; ATTEND Family Medicine
DX: J18.9 Pneumonia, unspecified organism (principal); J84.9 Interstitial pulmonary disease, unspecified; L97.202 Non-pressure chronic ulcer of unspecified calf with fat layer exposed; E87.5 Hyperkalemia; J45.21 Mild intermittent asthma with (acute) exacerbation; I83.202 Varicose veins of unspecified lower extremity with both ulcer of calf and inflammation; M41.9 Scoliosis, unspecified; E09.9 Drug or chemical induced diabetes mellitus without complications; T38.0X5A Adverse effect of glucocorticoids and synthetic analogues, initial encounter; N30.20 Other chronic cystitis without hematuria; K21.9 Gastro-esophageal reflux disease without esophagitis; D46.9 Myelodysplastic syndrome, unspecified; I10 Essential (primary) hypertension; R91.1 Solitary pulmonary nodule; M54.2 Cervicalgia; H40.9 Unspecified glaucoma; G89.29 Other chronic pain; M19.91 Primary osteoarthritis, unspecified site; Z96.642 Presence of left artificial hip joint; Z79.82 Long term (current) use of aspirin; Z79.1 Long term (current) use of non-steroidal anti-inflammatories (NSAID); Z79.51 Long term (current) use of inhaled steroids; Z79.52 Long term (current) use of systemic steroids; Z79.899 Other long term (current) drug therapy; Z86.14 Personal history of Methicillin resistant Staphylococcus aureus infection; Z90.710 Acquired absence of both cervix and uterus
CPT/HCPCS: 36415; 71020; 80048; 80053; 82550; 82553; 83605; 83735; 83880; 84132; 84443; 84484; 85025; 85610; 85730; 87040; 93005; 94640; 94760; 96361; 96365; 96375; 99285

== ENCOUNTER 2017-02-14 10:12 | Emergency (ER) | payer MEDICARE ==
[2017-02-14 10:17] VITALS: TEMP 98.1
--- NOTE | 2017-02-14 10:38 | ED ---
General Adult HPI - General Chief complaint: Extremity Problem,Nontraumatic Stated complaint: LEFT FOOT BRUISING AND SWELLING, NO INJURY Time Seen by Provider: 02/14/17 10:18 Source: patient, family, RN notes reviewed, old records reviewed Mode of arrival: wheelchair Limitations: no limitations - History of Present Illness Initial comments: Chief complaint and history of present illness is an 86-year-old female here with her son. The patient noticed yesterday some black and blue developing on her distal left foot. She does not remember any particular trauma. She has a raised area on the dorsum of the left foot with ecchymosis to the area distal to that and onto several the toes. Minimal discomfort with movement but with palpation doesn't increased discomfort. Patient had a similar episode 4 months ago where he just by rubbing her legs together she developed a large hematoma which was evacuated and took months to heal. - Related Data Home Medications Medication Instructions Recorded Confirmed Cyclosporine, Modified 100 mg PO HS 02/07/14 02/12/17 [Cyclosporine Modified] amLODIPine [Norvasc] 5 mg PO QAM 02/07/14 02/12/17 Aspirin 81 mg PO QAM 05/09/15 02/12/17 Latanoprost Ophth [Xalatan 0.005%] 1 drop BOTH EYES HS 11/02/15 02/12/17 Fluticasone Nasal [place] [Flonase 1 spray EA NOSTRIL BID 11/09/15 02/12/17 Nasal [place]] Brimonidine Tartrate [Alphagan P 1 drop BOTH EYES BID 12/17/15 02/12/17 0.2% Ophth Soln] Calcium Carbonate [Calcium] 600 mg PO QAM 06/28/16 02/12/17 Celecoxib [CeleBREX] 200 mg PO QAM 06/28/16 02/12/17 Omeprazole 20 mg PO QAM 06/28/16 02/12/17 guaiFENesin [Mucinex] 600 mg PO QAM 06/28/16 02/12/17 Betaxolol HCl [Betoptic S 0.5% 1 drop BOTH EYES BID 01/31/17 02/12/17 Ophth Soln] Cyanocobalamin (Vitamin B-12) 1,000 mcg PO DAILY 01/31/17 02/12/17 [Vitamin B-12] Levalbuterol Nebulized [Xopenex 1.25 mg INHALATION RT-BID 01/31/17 02/12/17 Nebulized] Tiotropium [place] [Spiriva] 1 cap INHALATION RT-DAILY 01/31/17 02/12/17 cycloSPORINE 0.05% OPHTH SOLN 1 drop BOTH EYES BID 01/31/17 02/12/17 [Restasis] predniSONE See Taper PO DAILY 01/31/17 02/12/17 Previous Rx's Medication Instructions Recorded Metoprolol Tartrate [Lopressor] 25 mg PO BID tab 11/14/15 Budesonide-Formot 160-4.5 Mcg 2 puff INHALATION RT-BID #3 puff 07/01/16 [Symbicort 160-4.5 Mcg Inhaler] Allergies Allergy/AdvReac Type Severity Reaction Status Date / Time Sulfa (Sulfonamide Allergy Anaphylaxis Verified 02/14/17 10:17 Antibiotics) Review of Systems ROS Statement: Those systems with pertinent positive or pertinent negative responses have been documented in the HPI. Review of systems no complaint of headache or visual acuity changes she has COPD. Mild anterior chest wall discomfort. Recently treated for pneumonia. No chest complaints GI/ problems. She is on prednisone and has extremely fragile skin multiple areas of ecchymoses throughout her body. She reports a small injury leads to a large bruise. All systems reviewed. Past medical problems COPD, GERD, hypertension, musculoskeletal disorder, OA,. The patient's surgeries appendectomy, bladder surgery, bowel resection, hysterectomy, the patient's denying any cancer in the family. She has ALLERGIES to sulfa. Never smoked. Rarely drinks alcohol. ROS Other: All systems not noted in ROS Statement are negative. Past Medical History Past Medical History: Asthma, Blood Disorder, COPD, GERD/Reflux, Hypertension, Musculoskeletal Disorder, Osteoarthritis (OA), Respiratory Disorder Additional Past Medical History / Comment(s): CHRONIC ANEMIA History of Any Multi-Drug Resistant Organisms: MRSA Date of last positivie culture/infection: 12/18/16 MDRO Source:: RIGHT LEG Past Surgical History: Appendectomy, Bladder Surgery, Bowel Resection, Hysterectomy, Orthopedic Surgery Additional Past Surgical History / Comment(s): BLADDER SX D/T ULCERS, left hip replacement November 2015, fall with right leg fracture to [facility] for rehab after Past Anesthesia/Blood Transfusion Reactions: No Reported Reaction Additional Past Anesthesia/Blood Transfusion Reaction / Comment(s): HAS HAD PREVIOUS BLOOD TRANSFUSIONS- states "no reactions" Past Psychological History: No Psychological Hx Reported Smoking Status: Never smoker Past Alcohol Use History: None Reported Past Drug Use History: None Reported - Past Family History Father Family Medical History: No Reported History Additional Family Medical History / Comment(s): FROM OLD AGE Mother Family Medical History: No Reported History Additional Family Medical History / Comment(s): FROM OLD AGE General Exam - General Exam Comments Initial Comments: General: The patient is awake and alert, in no distress, and does not appear acutely ill. Here because of ecchymosis to her left foot. Vital signs show temperature 98.1 pulse 110 respiratory rate 18 pulse ox 97% room air blood pressure 128/60 Eye: Pupils are equal, round and reactive to light, extra-ocular movements are intact ; there is normal conjunctiva bilaterally. No signs of icterus. Evidence of cataract removal. Ears, nose, mouth and throat: There are moist mucous membranes and no oral lesions. Neck: The neck is supple, there is no tenderness . Cardiovascular: There is a regular rate and rhythm. No murmur, rub or gallop is appreciated. Respiratory: History of COPD, on prednisone. Rare rale clears after deep breath or coughing. Gastrointestinal: Soft, non-distended, non-tender abdomen without masses or organomegaly noted. There is no rebound or guarding present. No CVA tenderness. Bowel sounds are unremarkable. Back: History of osteoarthritis but no complaints of back pain today. Musculoskeletal: Ecchymosis on his dorsal surface of her left foot with several toes involved. Mild tenderness with palpation. Able to wiggle without discomfort. Neurovascular status intact. No signs of infection. Neurological: No complaint of any weakness or neuro deficits. Skin: Multiple areas of ecchymosis due to mild traumas.. Limitations: no limitations Course Vital Signs 02/14/17 02/14/17 10:14 11:31 Temperature 98.1 F Pulse Rate 110 H 98 Respiratory 18 16 Rate Blood Pressure 128/60 124/62 O2 Sat by Pulse 97 93 L Oximetry Medical Decision Making - Medical Decision Making Medical decision making x-ray of the left foot was taken and reviewed by radiologist his impression is ossific density adjacent to the medial aspect of the distal phalanx left great toe may be chronic in nature although chip fracture is not excluded. Correlate clinically for point tenderness. As read by Dr. Juarez. Labs show a white count of 14,000 hemoglobin 9 hematocrit 28, INR 1.2, potassium 4.0. BUN 39 creatinine 1.04 the GFR rate of 50. Glucose is 202. Elevated white count and sugar most likely related to her prednisone. Patient was advised to discuss with her family physician the elevated glucose. Chest x-ray was done and reviewed by radiologist he compared this to an x-ray done 11 days ago. His impression is scattered senescent parenchymal changes noted. Hyperinflation compatible COPD. No evidence for infiltrate. No evidence of atelectasis. Heart size is stable. Mediastinal structures are stable and grossly unremarkable. No evidence for hilar prominence. Degenerative changes of the dorsal spine. Changes of prior vertebroplasty. Methylmethacrylate material is noted within the right paraspinal region. Impression no evidence for acute pulmonary disease. As read by Dr. Juarez Patient be advised to keep foot elevated cool compress over the area. Follow- up with her family physician as noted above. Report any fever or signs of infection. - Lab Data Result diagrams: 02/14/17 10:38 02/14/17 10:38 Lab Results 02/14/17 02/14/17 02/14/17 Range/Units 10:38 10:38 10:38 WBC 14.3 H (3.8-10.6) k/uL RBC 2.91 L (3.80-5.40) m/uL Hgb 9.0 L (11.4-16.0) gm/dL Hct 28.2 L (34.0-46.0) % MCV 97.0 D (80.0-100.0) fL MCH 30.9 (25.0-35.0) pg MCHC 31.9 (31.0-37.0) g/dL RDW 17.3 H (11.5-15.5) % Plt Count 176 (150-450) k/uL Neutrophils % 89 % Lymphocytes % 4 % Monocytes % 5 % Eosinophils % 1 % Basophils % 0 % Neutrophils # 12.8 H (1.3-7.7) k/uL Lymphocytes # 0.6 L (1.0-4.8) k/uL Monocytes # 0.7 (0-1.0) k/uL Eosinophils # 0.1 (0-0.7) k/uL Basophils # 0.1 (0-0.2) k/uL Anisocytosis Slight Macrocytosis Slight PT 12.0 (9.0-12.0) sec INR 1.2 H (<1.2) Sodium 141 (137-145) mmol/L Potassium 4.0 (3.5-5.1) mmol/L Chloride 109 H (98-107) mmol/L Carbon Dioxide 23 (22-30) mmol/L Anion Gap 9 mmol/L BUN 39 H (7-17) mg/dL Creatinine 1.04 (0.52-1.04) mg/dL Est GFR (MDRD) Af Amer >60 (>60 ml/min/1.73 sqM) Est GFR (MDRD) Non-Af 50 (>60 ml/min/1.73 sqM) Glucose 202 H (74-99) mg/dL Calcium 8.7 (8.4-10.2) mg/dL Total Bilirubin 0.4 (0.2-1.3) mg/dL AST 12 L (14-36) U/L ALT 26 (9-52) U/L Alkaline Phosphatase 106 (38-126) U/L Total Protein 5.1 L (6.3-8.2) g/dL Albumin 2.9 L (3.5-5.0) g/dL Disposition Clinical Impression: Contusion of left foot including toes Disposition: HOME SELF-CARE Condition: Fair Instructions: Contusion in Adults (ED), Ecchymosis (ED) Additional Instructions: Elevate foot as often as possible cool compress over the area. Watch for any breakdown in skin applied topical antibiotic ointment if this does occur follow- up with your family physician. Discussed with your physician elevated blood sugar. Referrals: Dawood Washington MD [Primary Care Provider] - 1-2 days Time of Disposition: 12:17
[2017-02-14 11:02] LABS: Anisocytosis Slight; Basophils # (A) 0.1 k/uL (0-0.2); Basophils % (A) 0 %; CH 30.8; CHCM 31.9; Eosinophils # (A) 0.1 k/uL (0-0.7); Eosinophils % (A) 1 %; HCT 28.2 % (34.0-46.0); HDW 2.79; Luc # (Auto) 0.12; Luc % (Auto) 1; Lymphocytes # (A) 0.6 k/uL (1.0-4.8); Lymphocytes % (A) 4 %; MCH 30.9 pg (25.0-35.0); MCHC 31.9 g/dL (31.0-37.0); Macrocytosis Slight; Mean Platelet Volume 11.1; Monocytes # (A) 0.7 k/uL (0-1.0); Monocytes % (A) 5 %; Neutrophils # (A) 12.8 k/uL (1.3-7.7); Neutrophils % (A) 89 %; RBC 2.91 m/uL (3.80-5.40); RDW 17.3 % (11.5-15.5); WBC 14.3 k/uL (3.8-10.6); WBC (Perox) 15.86
[2017-02-14 11:08] LABS: INR 1.2 (<1.2)
--- NOTE | 2017-02-14 11:13 | XR ---
EXAMINATION TYPE: XR foot complete LT DATE OF EXAM: 02/14/2017 CLINICAL HISTORY: pain TECHNIQUE: Frontal, lateral and oblique images of the left foot are obtained. COMPARISON: None. FINDINGS: Ossific density adjacent to the medial aspect of the distal phalanx left great toe may be c hronic in nature although chip fracture is not excluded. Correlate clinically point tenderness. The j oint spaces appear within normal limits. The overlying soft tissue appears unremarkable. IMPRESSION: Ossific density adjacent to the medial aspect of the distal phalanx left great toe may be chronic in nature although chip fracture is not excluded. Correlate clinically point tenderness.
[2017-02-14 11:14] LABS: ALT 26 U/L (9-52); AST 12 U/L (14-36); Alkaline Phosphatase 106 U/L (38-126); Anion Gap 9 mmol/L; Blood Urea Nitrogen 39 mg/dL (7-17); Calcium 8.7 mg/dL (8.4-10.2); Carbon Dioxide 23 mmol/L (22-30); Chloride 109 mmol/L (98-107); Glucose 202 mg/dL (74-99); Non-African American GFR(MDRD) 50 (>60 ml/min/1.73 sqM); Sodium 141 mmol/L (137-145); Total Bilirubin 0.4 mg/dL (0.2-1.3); Total Protein 5.1 g/dL (6.3-8.2)
[2017-02-14 11:32] VITALS: BP 124/62; PULSE 98; RESP 16
--- NOTE | 2017-02-14 11:56 | XR ---
EXAMINATION TYPE: XR chest 2V DATE OF EXAM: 02/14/2017 COMPARISON: 12/06/2017 HISTORY: Shortness of breath TECHNIQUE: Frontal and lateral views of the chest are obtained. FINDINGS: Scattered senescent parenchymal changes noted. Hyperinflation compatible with COPD. No evidence for infiltrate. No evidence for atelectasis. Heart size is stable. Mediastinal structures are stable and grossly unremarkable. No evidence for hilar prominence. Degenerative changes dorsal spine. Changes of prior vertebroplasty. Methylmethacrylate material is no jerry within the right paraspinal region. IMPRESSION: 1. No evidence for acute pulmonary disease.
== END 2017-02-14 12:29 | disposition home or self-care (01) ==
LOC: EC 10:12
DX: S90.32XA Contusion of left foot, initial encounter (principal); S90.122A Contusion of left lesser toe(s) without damage to nail, initial encounter; M85.872 Other specified disorders of bone density and structure, left ankle and foot; M47.9 Spondylosis, unspecified; D72.829 Elevated white blood cell count, unspecified; R73.9 Hyperglycemia, unspecified; R91.8 Other nonspecific abnormal finding of lung field; I10 Essential (primary) hypertension; J45.909 Unspecified asthma, uncomplicated; K21.9 Gastro-esophageal reflux disease without esophagitis; M19.90 Unspecified osteoarthritis, unspecified site; D75.9 Disease of blood and blood-forming organs, unspecified; Z79.1 Long term (current) use of non-steroidal anti-inflammatories (NSAID); Z79.51 Long term (current) use of inhaled steroids; Z79.52 Long term (current) use of systemic steroids; Z79.899 Other long term (current) drug therapy; Z88.2 Allergy status to sulfonamides; Z98.890 Other specified postprocedural states; X58.XXXA Exposure to other specified factors, initial encounter
CPT/HCPCS: 36415; 71020; 80053; 85025; 85610; 99283

== ENCOUNTER 2017-02-16 10:30 | Inpatient (IN) | payer MEDICARE ==
[2017-02-16] MEDS ORDERED: ALBUTEROL NEBULIZED 2.5 MG/3 ML INHALATION STA (11:18)
[2017-02-16] MEDS ORDERED: methylPREDNISolone SOD SUCCI 125 MG/2 ML VIAL IV STA (11:18)
--- NOTE | 2017-02-16 11:30 | ED ---
General Adult HPI - General Chief complaint: Shortness of Breath Stated complaint: Sent by Hanh Abnormal EKG Time Seen by Provider: 02/16/17 10:45 Source: patient, RN notes reviewed Mode of arrival: wheelchair Limitations: no limitations - History of Present Illness Initial comments: This is an 86-year-old female presents emergency department with past medical history significant for COPD. Patient also states she has some scarring to her lungs from some previous medication she was on. Patient states that she just got done taking antibiotics 4 days ago for pneumonia. Patient went to see her pre press operator today because she was still having difficulty breathing and having some chest pain. Pipe Coverer Helper into the emergency room to get worked up further because he did not believe she still had any pneumonia. Patient comes in complaining of a two-week history of difficulty breathing and shortness of breath as well as some chest pain she states over the last 3 days that symptoms seemed to worsen. Patient denies any fever chills. Patient denies any abdominal pain patient denies nausea vomiting diarrhea per patient denies headache patient denies numbness weakness. Patient denies any recent injury or trauma. - Related Data Home Medications Medication Instructions Recorded Confirmed Cyclosporine, Modified 100 mg PO HS 02/07/14 02/16/17 [Cyclosporine Modified] amLODIPine [Norvasc] 5 mg PO QAM 02/07/14 02/16/17 Aspirin 81 mg PO QAM 05/09/15 02/16/17 Latanoprost Ophth [Xalatan 0.005%] 1 drop BOTH EYES HS 11/02/15 02/16/17 Fluticasone Nasal [place] [Flonase 1 spray EA NOSTRIL BID 11/09/15 02/16/17 Nasal [place]] Brimonidine Tartrate [Alphagan P 1 drop BOTH EYES BID 12/17/15 02/16/17 0.2% Ophth Soln] Calcium Carbonate [Calcium] 600 mg PO QAM 06/28/16 02/16/17 Celecoxib [CeleBREX] 200 mg PO QAM 06/28/16 02/16/17 Omeprazole 20 mg PO QAM 06/28/16 02/16/17 guaiFENesin [Mucinex] 600 mg PO QAM 06/28/16 02/16/17 Betaxolol HCl [Betoptic S 0.5% 1 drop BOTH EYES BID 01/31/17 02/16/17 Ophth Soln] Cyanocobalamin (Vitamin B-12) 1,000 mcg PO DAILY 01/31/17 02/16/17 [Vitamin B-12] Levalbuterol Nebulized [Xopenex 1.25 mg INHALATION RT-BID 01/31/17 02/16/17 Nebulized] Tiotropium [place] [Spiriva] 1 cap INHALATION RT-DAILY 01/31/17 02/16/17 cycloSPORINE 0.05% OPHTH SOLN 1 drop BOTH EYES BID 01/31/17 02/16/17 [Restasis] predniSONE 5 mg PO DAILY 02/14/17 02/16/17 Previous Rx's Medication Instructions Recorded Metoprolol Tartrate [Lopressor] 25 mg PO BID tab 11/14/15 Budesonide-Formot 160-4.5 Mcg 2 puff INHALATION RT-BID #3 puff 07/01/16 [Symbicort 160-4.5 Mcg Inhaler] Allergies Allergy/AdvReac Type Severity Reaction Status Date / Time Sulfa (Sulfonamide Allergy Anaphylaxis Verified 02/16/17 11:36 Antibiotics) Review of Systems ROS Statement: Those systems with pertinent positive or pertinent negative responses have been documented in the HPI. ROS Other: All systems not noted in ROS Statement are negative. Past Medical History Past Medical History: Asthma, Blood Disorder, COPD, GERD/Reflux, Hypertension, Musculoskeletal Disorder, Osteoarthritis (OA), Respiratory Disorder Additional Past Medical History / Comment(s): CHRONIC ANEMIA History of Any Multi-Drug Resistant Organisms: MRSA Date of last positivie culture/infection: 12/18/16 MDRO Source:: RIGHT LEG Past Surgical History: Appendectomy, Bladder Surgery, Bowel Resection, Hysterectomy, Orthopedic Surgery Additional Past Surgical History / Comment(s): BLADDER SX D/T ULCERS, left hip replacement November 2015, fall with right leg fracture to [facility] for rehab after Past Anesthesia/Blood Transfusion Reactions: No Reported Reaction Additional Past Anesthesia/Blood Transfusion Reaction / Comment(s): HAS HAD PREVIOUS BLOOD TRANSFUSIONS- states "no reactions" Past Psychological History: No Psychological Hx Reported Smoking Status: Never smoker Past Alcohol Use History: None Reported Past Drug Use History: None Reported - Past Family History Father Family Medical History: No Reported History Additional Family Medical History / Comment(s): FROM OLD AGE Mother Family Medical History: No Reported History Additional Family Medical History / Comment(s): FROM OLD AGE General Exam - General Exam Comments Initial Comments: GENERAL: Patient is well-developed and well-nourished. Patient is nontoxic and well- hydrated and is in mild distress. ENT: Neck is soft and supple. No significant lymphadenopathy is noted. Oropharynx is clear. Moist mucous membranes. Neck has full range of motion without eliciting any pain. EYES: The sclera were anicteric and conjunctiva were pink and moist. Extraocular movements were intact and pupils were equal round and reactive to light. Eyelids were unremarkable. PULMONARY: Patient has some retractions and has expiratory wheezing diffusely. Patient has crackles in the bases bilaterally as well CARDIOVASCULAR: There is a regular rate and rhythm without any murmurs gallops or rubs. ABDOMEN: Soft and nontender with normal bowel sounds. No palpable organomegaly was noted. There is no palpable pulsatile mass. SKIN: Patient has ecchymosis on her arms and legs which she states is been a chronic problem. Patient denies any blood thinners NEUROLOGIC: Patient is alert and oriented x3. Cranial nerves II through XII are grossly intact. Motor and sensory are also intact. Normal speech, volume and content. Symmetrical smile. MUSCULOSKELETAL: Normal extremities with adequate strength and full range of motion. LYMPHATICS: No significant lymphadenopathy is noted PSYCHIATRIC: Normal psychiatric evaluation. Limitations: no limitations Course Vital Signs 02/16/17 02/16/17 02/16/17 10:41 11:14 11:44 Temperature 98.1 F Pulse Rate 114 H 108 H Pulse Rate [ 115 H Right Radial] Respiratory 18 22 Rate Blood Pressure 116/58 135/68 O2 Sat by Pulse 95 96 Oximetry 02/16/17 02/16/17 02/16/17 12:17 12:32 12:46 Temperature Pulse Rate 104 H 108 H 112 H Pulse Rate [ Right Radial] Respiratory 22 Rate Blood Pressure 148/76 O2 Sat by Pulse 99 Oximetry 02/16/17 02/16/17 02/16/17 12:47 13:35 14:21 Temperature 98.0 F Pulse Rate 112 H 109 H 114 H Pulse Rate [ Right Radial] Respiratory 20 16 Rate Blood Pressure 150/73 114/67 O2 Sat by Pulse 96 98 Oximetry Medical Decision Making - Medical Decision Making EKG shows sinus tachycardia at 109 bpm OK interval is 142 QRS is 86 Q-T intervals 318 QTC is 428. Patient's EKG shows no ST segment elevation or T wave abnormalities are noted. CT exam showed no acute normalities however there is a thyroid nodule that needs further evaluation. Spoke Dr. Washington he agreed that the patient. I consult pulmonary. I continue breathing treatments and steroids on the floor. I went back in the room to reevaluate the patient she did sound slightly better felt a little better but she continued to wheeze and was still feeling short of breath. I admitted the patient wrote admitting orders I continued steroids and breathing treatment on the floor. - Lab Data Result diagrams: 02/16/17 11:11 02/16/17 11:11 Lab Results 02/16/17 02/16/17 02/16/17 Range/Units 11:11 11:11 11:11 WBC 16.4 H (3.8-10.6) k/uL RBC 2.98 L (3.80-5.40) m/uL Hgb 9.2 L (11.4-16.0) gm/dL Hct 28.1 L (34.0-46.0) % MCV 94.2 (80.0-100.0) fL MCH 30.7 (25.0-35.0) pg MCHC 32.6 (31.0-37.0) g/dL RDW 16.8 H (11.5-15.5) % Plt Count 212 (150-450) k/uL Neutrophils % 91 % Lymphocytes % 4 % Monocytes % 4 % Eosinophils % 1 % Basophils % 0 % Neutrophils # 14.9 H (1.3-7.7) k/uL Lymphocytes # 0.6 L (1.0-4.8) k/uL Monocytes # 0.7 (0-1.0) k/uL Eosinophils # 0.1 (0-0.7) k/uL Basophils # 0.1 (0-0.2) k/uL Manual Slide Review Performed Toxic Granulation Present Poikilocytosis (manual Present Anisocytosis Slight Ovalocytes Present PT (9.0-12.0) sec INR (<1.2) APTT (22.0-30.0) sec D-Dimer (<0.60) mg/L FEU Sodium 139 (137-145) mmol/L Potassium 4.7 (3.5-5.1) mmol/L Chloride 107 (98-107) mmol/L Carbon Dioxide 23 (22-30) mmol/L Anion Gap 9 mmol/L BUN 38 H (7-17) mg/dL Creatinine 0.93 (0.52-1.04) mg/dL Est GFR (MDRD) Af Amer >60 (>60 ml/min/1.73 sqM) Est GFR (MDRD) Non-Af 57 (>60 ml/min/1.73 sqM) Glucose 130 H (74-99) mg/dL Calcium 9.1 (8.4-10.2) mg/dL Magnesium 1.7 (1.6-2.3) mg/dL Total Bilirubin 0.5 (0.2-1.3) mg/dL AST 17 (14-36) U/L ALT 27 (9-52) U/L Alkaline Phosphatase 105 (38-126) U/L Total Creatine Kinase 21 L (30-135) U/L CK-MB (CK-2) 1.6 (0.0-2.4) ng/mL CK-MB (CK-2) Rel Index 7.6 Troponin I <0.012 (0.000-0.034) ng/mL NT-Pro-B Natriuret Pep pg/mL Total Protein 5.4 L (6.3-8.2) g/dL Albumin 3.0 L (3.5-5.0) g/dL 02/16/17 02/16/17 Range/Units 11:11 11:11 WBC (3.8-10.6) k/uL RBC (3.80-5.40) m/uL Hgb (11.4-16.0) gm/dL Hct (34.0-46.0) % MCV (80.0-100.0) fL MCH (25.0-35.0) pg MCHC (31.0-37.0) g/dL RDW (11.5-15.5) % Plt Count (150-450) k/uL Neutrophils % % Lymphocytes % % Monocytes % % Eosinophils % % Basophils % % Neutrophils # (1.3-7.7) k/uL Lymphocytes # (1.0-4.8) k/uL Monocytes # (0-1.0) k/uL Eosinophils # (0-0.7) k/uL Basophils # (0-0.2) k/uL Manual Slide Review Toxic Granulation Poikilocytosis (manual Anisocytosis Ovalocytes PT 11.3 (9.0-12.0) sec INR 1.1 (<1.2) APTT 20.6 L (22.0-30.0) sec D-Dimer 1.24 H (<0.60) mg/L FEU Sodium (137-145) mmol/L Potassium (3.5-5.1) mmol/L Chloride (98-107) mmol/L Carbon Dioxide (22-30) mmol/L Anion Gap mmol/L BUN (7-17) mg/dL Creatinine (0.52-1.04) mg/dL Est GFR (MDRD) Af Amer (>60 ml/min/1.73 sqM) Est GFR (MDRD) Non-Af (>60 ml/min/1.73 sqM) Glucose (74-99) mg/dL Calcium (8.4-10.2) mg/dL Magnesium (1.6-2.3) mg/dL Total Bilirubin (0.2-1.3) mg/dL AST (14-36) U/L ALT (9-52) U/L Alkaline Phosphatase (38-126) U/L Total Creatine Kinase (30-135) U/L CK-MB (CK-2) (0.0-2.4) ng/mL CK-MB (CK-2) Rel Index Troponin I (0.000-0.034) ng/mL NT-Pro-B Natriuret Pep 1170 pg/mL Total Protein (6.3-8.2) g/dL Albumin (3.5-5.0) g/dL Disposition Clinical Impression: Thyroid nodule, COPD exacerbation Disposition: ADMITTED IP TO THIS HOSP Referrals: Dawood Washington MD [Primary Care Provider] - 1-2 days Time of Disposition: 14:20
[2017-02-16 11:54] LABS: Anisocytosis Slight; Basophils # (A) 0.1 k/uL (0-0.2); Basophils % (A) 0 %; CH 30.1; CHCM 32.1; Eosinophils # (A) 0.1 k/uL (0-0.7); Eosinophils % (A) 1 %; HCT 28.1 % (34.0-46.0); HGB 9.2 gm/dL (11.4-16.0); Immature Gran Flag Slight; Luc # (Auto) 0.12; Luc % (Auto) 1; Lymphocytes # (A) 0.6 k/uL (1.0-4.8); Lymphocytes % (A) 4 %; MCH 30.7 pg (25.0-35.0); MCHC 32.6 g/dL (31.0-37.0); MCV 94.2 fL (80.0-100.0); Mean Platelet Volume 9.7; Monocytes # (A) 0.7 k/uL (0-1.0); Monocytes % (A) 4 %; Neutrophils # (A) 14.9 k/uL (1.3-7.7); Neutrophils % (A) 91 %; RBC 2.98 m/uL (3.80-5.40); RDW 16.8 % (11.5-15.5); WBC 16.4 k/uL (3.8-10.6); WBC (Perox) 16.64
[2017-02-16 11:56] LABS: ALT 27 U/L (9-52); AST 17 U/L (14-36); Alkaline Phosphatase 105 U/L (38-126); Anion Gap 9 mmol/L; Blood Urea Nitrogen 38 mg/dL (7-17); Calcium 9.1 mg/dL (8.4-10.2); Carbon Dioxide 23 mmol/L (22-30); Chloride 107 mmol/L (98-107); Glucose 130 mg/dL (74-99); Magnesium 1.7 mg/dL (1.6-2.3); Non-African American GFR(MDRD) 57 (>60 ml/min/1.73 sqM); Potassium 4.7 mmol/L (3.5-5.1); Sodium 139 mmol/L (137-145); Total Bilirubin 0.5 mg/dL (0.2-1.3); Total Protein 5.4 g/dL (6.3-8.2)
[2017-02-16 12:04] LABS: INR 1.1 (<1.2); Prothrombin Time 11.3 sec (9.0-12.0)
[2017-02-16 12:05] LABS: Creatine Kinase 21 U/L (30-135)
[2017-02-16 12:13] LABS: Partial Thromboplastin Time 20.6 sec (22.0-30.0)
[2017-02-16 12:15] LABS: Manual Review Performed; Toxic Granulation Present
[2017-02-16 12:16] LABS: Ovalocytes Present
[2017-02-16 12:18] LABS: Creatine Kinase MB 1.6 ng/mL (0.0-2.4); Troponin I <0.012 ng/mL (0.000-0.034)
--- NOTE | 2017-02-16 12:21 | XR ---
EXAMINATION TYPE: XR chest 2V DATE OF EXAM: 02/16/2017 HISTORY: difficulty breathing. REFERENCE: Previous study dated 02/14/2017. FINDINGS: Lung volumes are prominent. The heart is mildly enlarged. There is minimal atelectatic christine ge present at the right lung base. Lungs otherwise clear. There is been a previous kyphoplasty in one of the mid dorsal vertebra there has been some extravasat ion of methylmethacrylate into the right paraspinal region. IMPRESSION: 1. COPD 2. MILD CARDIOMEGALY. 3. MINIMAL ATELECTATIC CHANGE, RIGHT LUNG BASE.
[2017-02-16] MEDS ORDERED: RX INFO: IV CONTRAST WAS GIVEN 1 EACH MISC MISCELLANE PRN (12:59)
--- NOTE | 2017-02-16 14:16 | CT ---
EXAMINATION TYPE: CT chest angio for PE DATE OF EXAM: 02/16/2017 COMPARISON: CT chest June 29, 2016. Older chest CT December 04, 2015. HISTORY: NO with abnormal EKG CT DLP: 91.5 mGycm. Automated Exposure Control for Dose Reduction was Utilized. CONTRAST: CTA scan of the thorax is performed with IV Contrast, patient injected with 61 mL of Visipaque 320, p ulmonary embolism protocol. MIP Images are created on CT scanner and reviewed. FINDINGS: LUNGS: There is peripheral reticulation and fibrosis redemonstrated bilaterally. No suspicious consol idation or groundglass opacity is seen. No pleural effusion or pneumothorax is seen bilaterally. Trac heobronchial tree is patent. There is stable 4 mm nodule posterior right upper lobe on axial image 19 unchanged from November 04, 2013 CT. No new suspicious nodule or mass is identified. There is calcified 1.8 x 1.3 cm pleural-based nodule posterior medial prevertebral region right lower lobe on axial karthikeyan ge 65 redemonstrated. MEDIASTINUM: There is satisfactory enhancement of the pulmonary artery and its branches, there is no CT evidence for pulmonary embolism. There are no greater than 1 cm hilar or mediastinal lymph nodes. No cardiomegaly or pericardial effusion is seen. There is mild to moderate left atrial and left ve ntricular dilatation. There is persistent heterogeneous enlarged left thyroid nodule with substernal extension measuring up to 2.5 cm. OTHER: Osseous structures are demineralized. Exaggerated thoracic kyphosis is seen. There are multile sangeeta compression type fracture deformities throughout the thoracolumbar spine some advanced in appeara nce. Majority are chronic most prominent T6-T8 levels. There is no advanced compression fracture T4 l evel noted. Slight posterior retropulsion of superior bony fragment into anterior spinal canal is see n on sagittal image 65. There is interval resolution of posterior chest wall mass or hematoma. IMPRESSION: 1. No CT evidence for pulmonary embolism. 2. Mild emphysematous change with scattered peripheral fibrosis redemonstrated perhaps slightly progr essed from one year ago. No acute pulmonary process is seen. 3. Demineralization with multilevel compression type fracture deformities throughout the thoracolumba r spine redemonstrated. There is interval advanced age indeterminate compression type fracture at T4 level in which acute fracture cannot be excluded. 4. Increasing prominent 2.5 cm left thyroid nodule, I see no evidence of ultrasound evaluation, advis ed nonemergent thyroid ultrasound to further evaluate and characterize.
[2017-02-16] MEDS: methylPREDNISolone SOD SUCCI 125 MG/2 ML VIAL IV SCH ×2 (18:48→23:35)
[2017-02-16] MEDS: IPRATROPIUM-ALBUTEROL 3 ML NEB INHALATION PRN (19:02)
[2017-02-16] MEDS: TEMAZEPAM 15 MG CAP PO PRN (23:32)
[2017-02-16] MEDS: BRIMONIDINE TARTRATE 0.2% DROPS 5 ML BTL BOTH EYES SCH (23:33)
[2017-02-16] MEDS: TIMOLOL 0.5% OPHTH DROPS 5 ML BTL BOTH EYES SCH (23:33)
[2017-02-16] MEDS: LATANOPROST 0.005% OPHTH DROPS 2.5 ML BTL BOTH EYES SCH (23:33)
[2017-02-16] MEDS: cycloSPORINE 0.05% OPHTH 0.4 ML DROPERETTE BOTH EYES SCH (23:34)
[2017-02-16] MEDS: METOPROLOL TARTRATE 25 MG TAB PO SCH (23:34)
[2017-02-16] MEDS: FLUTICASONE 50MCG/SPRAY NASAL 16GM EA NOSTRIL SCH (23:35)
[2017-02-17] MEDS: methylPREDNISolone SOD SUCCI 125 MG/2 ML VIAL IV SCH ×4 (06:55→23:04)
[2017-02-17] MEDS: PANTOPRAZOLE 40 MG TABLET PO SCH (06:55)
[2017-02-17] MEDS: ASPIRIN 81 MG CHEW PO SCH (08:38)
[2017-02-17] MEDS: CALCIUM CARBONATE 500 MG CHEWABLE PO SCH (08:39)
[2017-02-17] MEDS: BRIMONIDINE TARTRATE 0.2% DROPS 5 ML BTL BOTH EYES SCH ×2 (08:39→20:00)
[2017-02-17] MEDS: CYANOCOBALAMIN 500 MCG TAB PO SCH (08:40)
[2017-02-17] MEDS: amLODIPine 5 MG TAB PO SCH (08:40)
[2017-02-17] MEDS: METOPROLOL TARTRATE 25 MG TAB PO SCH ×2 (08:40→20:01)
[2017-02-17] MEDS: cycloSPORINE 0.05% OPHTH 0.4 ML DROPERETTE BOTH EYES SCH ×2 (08:41→20:00)
[2017-02-17] MEDS: MELOXICAM 7.5 MG TAB PO SCH (08:42)
[2017-02-17] MEDS: guaiFENesin 600 MG TABLET.ER PO SCH (08:42)
[2017-02-17] MEDS: TIMOLOL 0.5% OPHTH DROPS 5 ML BTL BOTH EYES SCH ×2 (08:43→20:00)
[2017-02-17] MEDS: FLUTICASONE 50MCG/SPRAY NASAL 16GM EA NOSTRIL SCH ×2 (08:44→20:08)
[2017-02-17] MEDS: IPRATROPIUM-ALBUTEROL 3 ML NEB INHALATION PRN ×2 (11:37→15:15)
--- NOTE | 2017-02-17 15:04 | P.CNPUL ---
History of Present Illness Consult date: 02/17/17 Requesting physician: Dawood Washington Reason for consult: dyspnea Chief complaint: Shortness of breath History of present illness: This is a very pleasant 86-year-old female patient who follows with Dr. Washington is her primary care physician. She has a history of hypertension, gastroesophageal reflux disease, osteoarthritis, chronic anemia, MRSA infection of the right leg in November 2016. 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 Schafer in our office for the same. She was recently here at the beginning of the month for an acute community acquired left lower lobe pneumonia and exacerbation of her mild intermittent asthma. She was just discharged on 2016. She represented to the emergency room yesterday with recurrent complaints of dyspnea on exertion. She has a dry nonproductive cough. No chills or night sweats. No nausea vomiting diarrhea. Her chest x-ray revealed evidence of mild cardiomegaly minimal atelectatic changes of the right lung base. No evidence of left lower lobe pneumonia. A CT angiogram revealed no evidence of pulmonary embolism. There is mild emphysematous changes with scattered peripheral fibrosis with slight progression from one year ago. No acute pulmonary process was noted. There was an enlarging 2.5 cm left thyroid nodule noted. Lab results revealed WBC 16.4. Hemoglobin 9.2. ProBNP 1170. She is seen today in consultation on the selective care unit. She is currently sitting up in chair at the bedside. She is awake and alert in no acute distress. She is afebrile. Hemodynamically stable. She is maintaining good O2 saturations in the high 90s on 2 L/m per nasal cannula. Review of Systems 14 point review of system was conducted. All negative other than as mentioned in the HPI. Past Medical History Past Medical History: Asthma, Blood Disorder, COPD, GERD/Reflux, Hypertension, Musculoskeletal Disorder, Osteoarthritis (OA), Respiratory Disorder Additional Past Medical History / Comment(s): CHRONIC ANEMIA History of Any Multi-Drug Resistant Organisms: MRSA Date of last positivie culture/infection: 12/18/16 MDRO Source:: RIGHT LEG Past Surgical History: Appendectomy, Bladder Surgery, Bowel Resection, Hysterectomy, Orthopedic Surgery Additional Past Surgical History / Comment(s): BLADDER SX D/T ULCERS, left hip replacement November 2015, fall with right leg fracture to [facility] for rehab after Past Anesthesia/Blood Transfusion Reactions: No Reported Reaction Additional Past Anesthesia/Blood Transfusion Reaction / Comment(s): HAS HAD PREVIOUS BLOOD TRANSFUSIONS- states "no reactions" Past Psychological History: No Psychological Hx Reported Smoking Status: Never smoker Past Alcohol Use History: None Reported Past Drug Use History: None Reported - Past Family History Father Family Medical History: No Reported History Additional Family Medical History / Comment(s): FROM OLD AGE Mother Family Medical History: No Reported History Additional Family Medical History / Comment(s): FROM OLD AGE Medications and Allergies Home Medications Medication Instructions Recorded Confirmed Type Cyclosporine, Modified 100 mg PO HS 02/07/14 02/16/17 History [Cyclosporine Modified] amLODIPine [Norvasc] 5 mg PO QAM 02/07/14 02/16/17 History Aspirin 81 mg PO QAM 05/09/15 02/16/17 History Latanoprost Ophth [Xalatan 0.005%] 1 drop BOTH EYES HS 11/02/15 02/16/17 History Fluticasone Nasal [place] [Flonase 1 spray EA NOSTRIL BID 11/09/15 02/16/17 History Nasal [place]] Brimonidine Tartrate [Alphagan P 1 drop BOTH EYES BID 12/17/15 02/16/17 History 0.2% Ophth Soln] Calcium Carbonate [Calcium] 600 mg PO QAM 06/28/16 02/16/17 History Celecoxib [CeleBREX] 200 mg PO QAM 06/28/16 02/16/17 History Omeprazole 20 mg PO QAM 06/28/16 02/16/17 History guaiFENesin [Mucinex] 600 mg PO QAM 06/28/16 02/16/17 History Betaxolol HCl [Betoptic S 0.5% 1 drop BOTH EYES BID 01/31/17 02/16/17 History Ophth Soln] Cyanocobalamin (Vitamin B-12) 1,000 mcg PO DAILY 01/31/17 02/16/17 History [Vitamin B-12] Levalbuterol Nebulized [Xopenex 1.25 mg INHALATION RT-BID 01/31/17 02/16/17 History Nebulized] Tiotropium [place] [Spiriva] 1 cap INHALATION RT-DAILY 01/31/17 02/16/17 History cycloSPORINE 0.05% OPHTH SOLN 1 drop BOTH EYES BID 01/31/17 02/16/17 History [Restasis] predniSONE 5 mg PO DAILY 02/14/17 02/16/17 History Allergies Allergy/AdvReac Type Severity Reaction Status Date / Time Sulfa (Sulfonamide Allergy Anaphylaxis Verified 02/16/17 11:36 Antibiotics) Physical Exam Vitals: Vital Signs Temp Pulse Pulse Resp BP BP Pulse Ox 02/17/17 12:00 97.5 F L 97 18 139/72 99 02/17/17 11:53 96 02/17/17 11:37 92 02/17/17 08:00 97.5 F L 90 18 131/69 99 02/17/17 04:00 88 16 155/83 99 02/17/17 00:00 97.8 F 108 H 16 129/78 97 02/16/17 22:05 115 H 18 02/16/17 20:12 99.1 F 115 H 18 153/83 97 02/16/17 19:11 114 H 02/16/17 19:02 104 H 02/16/17 18:45 98.7 F 106 H 20 148/72 97 02/16/17 16:00 107 H 18 151/72 95 02/16/17 15:11 112 H 20 146/69 99 02/16/17 14:21 98.0 F 114 H 16 114/67 98 Intake and Output 02/16/17 02/17/17 02/17/17 22:59 06:59 14:59 Intake Total 600 Balance 600 Intake: Oral 600 Other: Voiding Method Diaper Diaper Diaper Incontinent Incontinent Incontinent # Voids 2 Weight 42.7 kg 40.5 kg 40.5 kg Patient Weight 02/18/17 06:59 Weight 40.5 kg GENERAL EXAM: Frail, cachectic. Alert, active, comfortable in no apparent distress. HEAD: Normocephalic. EYES: Normal reaction of pupils, equal size. NOSE: Clear with pink turbinates. THROAT: No erythema or exudates. NECK: No masses, no JVD. CHEST: No chest wall deformity. LUNGS: Equal air entry with no crackles, wheeze, rhonchi or dullness. CVS: S1 and S2 normal with no audible murmurs, regular rhythm. ABDOMEN: No hepatosplenomegaly, normal bowel sounds, no guarding or rigidity. SPINE: Kyphoscoliosis SKIN: No rashes CENTRAL NERVOUS SYSTEM: No focal deficits, tone is normal in all 4 extremities. Extremities: There is some ecchymosis to the left foot. No clubbing, no cyanosis. Peripheral pulses are intact. Results - Laboratory Findings CBC and BMP: 02/16/17 11:11 02/16/17 11:11 PT/INR, D-dimer PT 11.3 sec (9.0-12.0) 02/16/17 11:11 INR 1.1 (<1.2) 02/16/17 11:11 D-Dimer 1.24 mg/L FEU (<0.60) H 02/16/17 11:11 Abnormal lab findings: Abnormal Labs 02/16/17 02/16/17 02/16/17 11:11 11:11 11:11 WBC 16.4 H RBC 2.98 L Hgb 9.2 L Hct 28.1 L RDW 16.8 H Neutrophils # 14.9 H Lymphocytes # 0.6 L APTT D-Dimer BUN 38 H Glucose 130 H Total Creatine Kinase 21 L Total Protein 5.4 L Albumin 3.0 L 02/16/17 11:11 WBC RBC Hgb Hct RDW Neutrophils # Lymphocytes # APTT 20.6 L D-Dimer 1.24 H BUN Glucose Total Creatine Kinase Total Protein Albumin - Diagnostic Findings Chest x-ray: image reviewed CT scan - chest: image reviewed Assessment and Plan Plan: Impression: #1 Dyspnea, multifactorial in a patient with chronic anemia, mild intermittent acute on chronic bronchial asthma, 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 #2 Chronic anemia, history of. #3 Acute exacerbation of mild intermittent asthma. #4 Mild pulmonary fibrosis. #5 Hypertension, history of. #6 Gastroesophageal reflux disease. #7 History of MRSA infection to the right leg. Plan: The patient was seen and evaluated by Dr. Sigala. Her chest x-ray, CAT scan and labs were reviewed. We will switch her DuoNeb to Xopenex and Atrovent due to her tachycardia, continue IV Solu-Medrol and no need for antibiotics at this point. She does believe she may need inpatient rehabilitation. She has been at [facility] in the past. Her son is at the bedside is agreeable as well. In the interim, we'll continue to follow and make further recommendations based on her clinical status. Time with Patient: Greater than 30
[2017-02-17 16:46] LABS: Glucose,Whole Blood 211 mg/dL (75-99)
[2017-02-17] MEDS: INSULIN LISPRO (humaLOG) 300 UNIT/3 ML VIAL SQ SCH ×2 (17:28→21:50)
--- NOTE | 2017-02-17 18:43 | P.HPIM ---
History of Present Illness H&P Date: 02/17/17 Chief Complaint: Shortness of breath This is an 86-year-old female well-known to our practice, presented via the emergency room after being sent by Dr. 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 Patient was recently discharged from the hospital had just finished antibiotics 4 days ago for pneumonia. Patient went to see the procurement cost coordinator. She was still having nausea breathing and some chest pain. Patient has been complaining of approximately 2 week history of intermittent difficulty breathing shortness of breath as well as intermittent test chest pain symptoms of which seemingly got had gotten worse Review of Systems Constitutional: Reports as per HPI Ears, nose, mouth and throat: Reports as per HPI Cardiovascular: Reports as per HPI Respiratory: Reports dyspnea Gastrointestinal: Reports as per HPI Genitourinary: Reports as per HPI Menstruation: Reports as per HPI Musculoskeletal: Reports as per HPI Integumentary: Reports as per HPI Neurological: Reports as per HPI Past Medical History Past Medical History: Asthma, Blood Disorder, COPD, GERD/Reflux, Hypertension, Musculoskeletal Disorder, Osteoarthritis (OA), Respiratory Disorder Additional Past Medical History / Comment(s): CHRONIC ANEMIA, 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: MRSA Date of last positivie culture/infection: 12/18/16 MDRO Source:: RIGHT LEG Past Surgical History: Appendectomy, Bladder Surgery, Bowel Resection, Hysterectomy, Orthopedic Surgery Additional Past Surgical History / Comment(s): BLADDER SX D/T ULCERS, left hip replacement November 2015, fall with right leg fracture to [facility] for rehab after Past Anesthesia/Blood Transfusion Reactions: No Reported Reaction Additional Past Anesthesia/Blood Transfusion Reaction / Comment(s): HAS HAD PREVIOUS BLOOD TRANSFUSIONS- states "no reactions" Past Psychological History: No Psychological Hx Reported Smoking Status: Never smoker Past Alcohol Use History: None Reported Past Drug Use History: None Reported - Past Family History Father Family Medical History: No Reported History Additional Family Medical History / Comment(s): FROM OLD AGE Mother Family Medical History: No Reported History Additional Family Medical History / Comment(s): FROM OLD AGE Medications and Allergies Home Medications Medication Instructions Recorded Confirmed Type Cyclosporine, Modified 100 mg PO HS 02/07/14 02/16/17 History [Cyclosporine Modified] amLODIPine [Norvasc] 5 mg PO QAM 02/07/14 02/16/17 History Aspirin 81 mg PO QAM 05/09/15 02/16/17 History Latanoprost Ophth [Xalatan 0.005%] 1 drop BOTH EYES HS 11/02/15 02/16/17 History Fluticasone Nasal [place] [Flonase 1 spray EA NOSTRIL BID 11/09/15 02/16/17 History Nasal [place]] Brimonidine Tartrate [Alphagan P 1 drop BOTH EYES BID 12/17/15 02/16/17 History 0.2% Ophth Soln] Calcium Carbonate [Calcium] 600 mg PO QAM 06/28/16 02/16/17 History Celecoxib [CeleBREX] 200 mg PO QAM 06/28/16 02/16/17 History Omeprazole 20 mg PO QAM 06/28/16 02/16/17 History guaiFENesin [Mucinex] 600 mg PO QAM 06/28/16 02/16/17 History Betaxolol HCl [Betoptic S 0.5% 1 drop BOTH EYES BID 01/31/17 02/16/17 History Ophth Soln] Cyanocobalamin (Vitamin B-12) 1,000 mcg PO DAILY 01/31/17 02/16/17 History [Vitamin B-12] Levalbuterol Nebulized [Xopenex 1.25 mg INHALATION RT-BID 01/31/17 02/16/17 History Nebulized] Tiotropium [place] [Spiriva] 1 cap INHALATION RT-DAILY 01/31/17 02/16/17 History cycloSPORINE 0.05% OPHTH SOLN 1 drop BOTH EYES BID 01/31/17 02/16/17 History [Restasis] predniSONE 5 mg PO DAILY 02/14/17 02/16/17 History Allergies Allergy/AdvReac Type Severity Reaction Status Date / Time Sulfa (Sulfonamide Allergy Anaphylaxis Verified 02/16/17 11:36 Antibiotics) Physical Exam Osteopathic Statement: *. No significant issues noted on an osteopathic structural exam other than those noted in the History and Physical/Consult. Vitals: Vital Signs Temp Pulse Pulse Resp BP BP Pulse Ox 02/17/17 16:00 98.2 F 102 H 18 147/78 95 02/17/17 15:30 100 02/17/17 15:15 100 02/17/17 12:00 97.5 F L 97 18 139/72 99 02/17/17 11:53 96 02/17/17 11:37 92 02/17/17 08:00 97.5 F L 90 18 131/69 99 02/17/17 04:00 88 16 155/83 99 02/17/17 00:00 97.8 F 108 H 16 129/78 97 02/16/17 22:05 115 H 18 02/16/17 20:12 99.1 F 115 H 18 153/83 97 02/16/17 19:11 114 H 02/16/17 19:02 104 H 02/16/17 18:45 98.7 F 106 H 20 148/72 97 Intake and Output 02/17/17 02/17/17 02/17/17 06:59 14:59 22:59 Intake Total 1040 960 Balance 1040 960 Intake: Oral 1040 960 Other: Voiding Method Diaper Diaper Diaper Incontinent Incontinent Incontinent # Voids 2 3 # Bowel Movements 0 Weight 40.5 kg 40.5 kg Patient Weight 02/18/17 06:59 Weight 40.5 kg General: [Patient awake, alert and oriented times 3. Patient in no acute distress.] HEENT: [PERRL. EOMI. No pharyngeal erythema or exudate.] Neck: [No adenopathy.] Cardiac: [Heart regular in rate and rhythm. No S3. No S4. No clicks, rubs. No murmur.] Lungs: Patient has bibasilar crackles, some retractions with intermittent wheezing Abdomen: [No mass. No organomegaly. Bowel sounds presnt and normoactive in all 4 quadrants.] Extremes: [No edema no cyanosis no claudication normal pulses] : [] Musculoskeletal: [No joint erythema, edema or tenderness.] Skin: [No rash.] Neurologic: [No lateralizing deficits. CN II - XII grossly intact.] Lymphatic: [No adenopathy.] Results CBC & Chem 7: 02/16/17 11:11 02/16/17 11:11 Labs: Abnormal Lab Results - Last 24 Hours (Table) 02/17/17 Range/Units 16:44 POC Glucose (mg/dL) 211 H (75-99) mg/dL Microbiology - Last 24 Hours (Table) 02/16/17 11:11 Blood Culture - Preliminary Blood No Growth after 24 hours Thrombosis Risk Factor Assmnt - Choose All That Apply Any of the Below Risk Factors Present?: Yes Each Factor Represents 1 point: Abnormal pulmonary function (COPD), Serious lung disease incl. pneumonia (< 1month) Other Risk Factors: Yes Each Risk Factor Represents 3 Points: Age 75 years or older Thrombosis Risk Factor Assessment Total Risk Factor Score: 5 Thrombosis Risk Factor Assessment Level: High Risk Assessment and Plan Plan: Acute exacerbation chronic COPD Thyroid nodule
[2017-02-17] MEDS: LATANOPROST 0.005% OPHTH DROPS 2.5 ML BTL BOTH EYES SCH (20:00)
[2017-02-17 20:25] LABS: Hemoglobin A1C 6.4 % (4.2-6.1)
[2017-02-17 21:01] LABS: Glucose,Whole Blood 187 mg/dL (75-99)
[2017-02-17] MEDS: SYMBICORT 160-4.5 MCG INHALER INHALATION SCH (21:28)
[2017-02-17] MEDS: TEMAZEPAM 15 MG CAP PO PRN (22:06)
[2017-02-18 05:46] LABS: Glucose,Whole Blood 199 mg/dL (75-99)
[2017-02-18] MEDS: PANTOPRAZOLE 40 MG TABLET PO SCH (06:26)
[2017-02-18] MEDS: INSULIN LISPRO (humaLOG) 300 UNIT/3 ML VIAL SQ SCH ×4 (06:26→22:19)
[2017-02-18] MEDS: methylPREDNISolone SOD SUCCI 125 MG/2 ML VIAL IV SCH ×3 (06:26→17:01)
[2017-02-18] MEDS: BRIMONIDINE TARTRATE 0.2% DROPS 5 ML BTL BOTH EYES SCH ×2 (09:43→22:18)
[2017-02-18] MEDS: METOPROLOL TARTRATE 25 MG TAB PO SCH ×2 (09:44→22:17)
[2017-02-18] MEDS: guaiFENesin 600 MG TABLET.ER PO SCH (09:45)
[2017-02-18] MEDS: cycloSPORINE 0.05% OPHTH 0.4 ML DROPERETTE BOTH EYES SCH ×2 (09:45→22:18)
[2017-02-18] MEDS: ASPIRIN 81 MG CHEW PO SCH (09:45)
[2017-02-18] MEDS: MELOXICAM 7.5 MG TAB PO SCH (09:45)
[2017-02-18] MEDS: CALCIUM CARBONATE 500 MG CHEWABLE PO SCH (09:45)
[2017-02-18] MEDS: TIMOLOL 0.5% OPHTH DROPS 5 ML BTL BOTH EYES SCH ×2 (09:45→22:20)
[2017-02-18] MEDS: amLODIPine 5 MG TAB PO SCH (09:46)
[2017-02-18] MEDS: CYANOCOBALAMIN 500 MCG TAB PO SCH (09:46)
[2017-02-18] MEDS: FLUTICASONE 50MCG/SPRAY NASAL 16GM EA NOSTRIL SCH ×2 (09:46→22:18)
[2017-02-18] MEDS: IPRATROPIUM-ALBUTEROL 3 ML NEB INHALATION PRN (10:47)
[2017-02-18] MEDS: SYMBICORT 160-4.5 MCG INHALER INHALATION SCH (10:47)
[2017-02-18] MEDS ORDERED: FUROSEMIDE 10 MG/ML 2 ML VIAL IV ONE (11:30)
[2017-02-18 11:41] LABS: Glucose,Whole Blood 253 mg/dL (75-99)
[2017-02-18] MEDS ORDERED: LEVOFLOXACIN 750 MG TAB PO SCH (12:00)
--- NOTE | 2017-02-18 14:02 | P.PN ---
Subjective This is a very pleasant 86-year-old female patient who follows with Dr. Washington is her primary care physician. She has a history of hypertension, gastroesophageal reflux disease, osteoarthritis, chronic anemia, MRSA infection of the right leg in November 2016. 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 Schafer in our office for the same. She was recently here at the beginning of the month for an acute community acquired left lower lobe pneumonia and exacerbation of her mild intermittent asthma. She was just discharged on 2016. She represented to the emergency room yesterday with recurrent complaints of dyspnea on exertion. She has a dry nonproductive cough. No chills or night sweats. No nausea vomiting diarrhea. Her chest x-ray revealed evidence of mild cardiomegaly minimal atelectatic changes of the right lung base. No evidence of left lower lobe pneumonia. A CT angiogram revealed no evidence of pulmonary embolism. There is mild emphysematous changes with scattered peripheral fibrosis with slight progression from one year ago. No acute pulmonary process was noted. There was an enlarging 2.5 cm left thyroid nodule noted. Lab results revealed WBC 16.4. Hemoglobin 9.2. ProBNP 1170. She is seen today in consultation on the selective care unit. She is currently sitting up in chair at the bedside. She is awake and alert in no acute distress. She is afebrile. Hemodynamically stable. She is maintaining good O2 saturations in the high 90s on 2 L/m per nasal cannula. The patient is seen again today 02/18/2017 in follow-up on the regular medical floor. She is awake and alert. She is still quite dyspneic even with minimal conversation. She is dyspneic with minimal exertion. She is maintaining O2 saturations in the low 90s on 2 L/m per nasal cannula. She is afebrile. Slightly tachycardic. She has been maintained on bronchodilators, IV Solu- Medrol, empiric antibiotics in the form of Levaquin. Her chest x-ray did not reveal any acute pulmonary process. There was some progression of the pulmonary fibrosis on the computed tomography scan. Blood cultures reveal no growth in 48 hours. Objective - Vital Signs Vital signs: Vital Signs Temp 97.7 F 02/18/17 11:57 Pulse 107 H 02/18/17 11:57 Resp 24 02/18/17 11:57 BP 139/73 02/18/17 11:57 Pulse Ox 93 L 02/18/17 11:57 Intake & Output 02/17/17 02/18/17 02/18/17 18:59 06:59 18:59 Intake Total 1999 130 720 Balance 1999 130 720 Weight 40.5 kg 41 kg Intake: IV 10 .9 10 Oral 1999 120 720 Other: Voiding Method Diaper Diaper Diaper Incontinent Incontinent Incontinent # Voids 3 1 # Bowel Movements 0 1 - Exam GENERAL EXAM: Frail, cachectic. Alert, active, comfortable in no apparent distress. HEAD: Normocephalic. EYES: Normal reaction of pupils, equal size. NOSE: Clear with pink turbinates. THROAT: No erythema or exudates. NECK: No masses, no JVD. CHEST: No chest wall deformity. LUNGS: Equal air entry with no crackles, wheeze, rhonchi or dullness. CVS: S1 and S2 normal with no audible murmurs, regular rhythm. ABDOMEN: No hepatosplenomegaly, normal bowel sounds, no guarding or rigidity. SPINE: Kyphoscoliosis SKIN: No rashes CENTRAL NERVOUS SYSTEM: No focal deficits, tone is normal in all 4 extremities. Extremities: There is some ecchymosis to the left foot. No clubbing, no cyanosis. Peripheral pulses are intact. - Labs CBC & Chem 7: 02/16/17 11:11 02/16/17 11:11 Labs: Abnormal Lab Results - Last 24 Hours (Table) 02/16/17 02/17/17 02/17/17 Range/Units 11:11 16:44 20:59 POC Glucose (mg/dL) 211 H 187 H (75-99) mg/dL Hemoglobin A1c 6.4 H (4.2-6.1) % 02/18/17 02/18/17 Range/Units 05:43 11:39 POC Glucose (mg/dL) 199 H 253 H (75-99) mg/dL Hemoglobin A1c (4.2-6.1) % Microbiology - Last 24 Hours (Table) 02/16/17 11:11 Blood Culture - Preliminary Blood No Growth after 48 hours Assessment and Plan Plan: Impression: #1 Dyspnea, multifactorial in a patient with chronic anemia, mild intermittent acute on chronic bronchial asthma, progressing pulmonary fibrosis secondary to suspected Macrodantin use. #2 Chronic anemia, history of. #3 Acute exacerbation of mild intermittent asthma. #4 Mild pulmonary fibrosis. #5 Hypertension, history of. #6 Gastroesophageal reflux disease. #7 History of MRSA infection to the right leg. Plan: The patient was seen and evaluated by Dr. Sigala. She is more short of breath and weak today as compared to yesterday. We will add empiric antibiotics in the form of Levaquin. We'll discontinue her Symbicort and add Pulmicort and Perforomist inhalations twice a day. We'll give her 1 dose of IV Lasix. We will obtain a urinalysis based on her previous history of recurrent polymicrobial urinary tract infections. Her overall prognosis remains quite poor and guarded at this point. Her son is at the bedside. We did have a conversation with him regarding her poor prognosis. She is a DO NOT RESUSCITATE /DO NOT INTUBATE CODE STATUS. She may benefit from a hospice evaluation. In the interim, we'll continue with full supportive care for now. We'll continue to follow.
--- NOTE | 2017-02-18 14:13 | P.PN ---
Subjective Principal diagnosis: Dyspnea chest discomfort Mrs. Bailey is a very pleasant 86-year-old female who presented to days ago with increased shortness of breath with a history of hypertension gastroesophageal reflux disease osteoarthritis, chronic anemia, not MRSA infection of the right leg november to 2016 and, a chronic history of bronchial asthma with known Macrodantin lung presented Dr. Schafer's office 2 days ago with an acute exacerbation of the chronic process. Patient was recently discharged on 02/05/2017 for basically the same. She has a dry nonproductive cough. No chills no night sweats. No nausea or vomiting. No evidence of left lower lobe pneumonia. N no CT evidence of pulmonary embolus. She has an enlarging 2.5 cm left thyroid nodule revealed a white count of 16.4 hemoglobin 9.2 a BNP of 1170. I had a long discussion with both her and her son regarding her long- term prognosis which is grave and it seems both were in agreement about a hospice consultation her son said that he had approached the subject with his brothers I also discussed the same with Dr. Sigala and I feel that it would be in the patient's best interests to proceed in that direction Objective - Vital Signs Vital signs: Vital Signs Temp 97.7 F 02/18/17 11:57 Pulse 107 H 02/18/17 11:57 Resp 24 02/18/17 11:57 BP 139/73 02/18/17 11:57 Pulse Ox 93 L 02/18/17 11:57 Intake & Output 02/17/17 02/18/17 02/18/17 18:59 06:59 18:59 Intake Total 1999 130 720 Balance 1999 130 720 Weight 40.5 kg 41 kg Intake: IV 10 .9 10 Oral 1999 120 720 Other: Voiding Method Diaper Diaper Diaper Incontinent Incontinent Incontinent # Voids 3 1 # Bowel Movements 0 1 - Exam General: [Patient awake, alert and oriented times 3. Patient in no acute distress.] HEENT: [PERRL. EOMI. No pharyngeal erythema or exudate.] Neck: [No adenopathy.] Cardiac: [Heart regular in rate and rhythm. No S3. No S4. No clicks, rubs. No murmur.] Lungs: Diminished to auscultation bilaterally. Fine bibasilar crackles Abdomen: [No mass. No organomegaly. Bowel sounds presnt and normoactive in all 4 quadrants.] Extremes: [No edema no cyanosis no claudication normal pulses] : [] Musculoskeletal: [No joint erythema, edema or tenderness.] Skin: [No rash.] Neurologic: [No lateralizing deficits. CN II - XII grossly intact.] Lymphatic: [No adenopathy.] - Labs CBC & Chem 7: 02/16/17 11:11 02/16/17 11:11 Labs: Abnormal Lab Results - Last 24 Hours (Table) 02/16/17 02/17/17 02/17/17 Range/Units 11:11 16:44 20:59 POC Glucose (mg/dL) 211 H 187 H (75-99) mg/dL Hemoglobin A1c 6.4 H (4.2-6.1) % 02/18/17 02/18/17 Range/Units 05:43 11:39 POC Glucose (mg/dL) 199 H 253 H (75-99) mg/dL Hemoglobin A1c (4.2-6.1) % Microbiology - Last 24 Hours (Table) 02/16/17 11:11 Blood Culture - Preliminary Blood No Growth after 48 hours Assessment and Plan Plan: Acute exacerbation chronic COPD, discussed the possibility of hospice with patient and her son also discussed this with Dr. Sigala, will also include her other children in discussion and make recommendation for consultation in the very near future. Thyroid nodule Time with Patient: Greater than 30
[2017-02-18 16:39] LABS: Glucose,Whole Blood 179 mg/dL (75-99)
[2017-02-18] MEDS: IPRATROPIUM 0.5 MG/2.5 ML NEBU INHALATION SCH ×2 (17:14→20:28)
[2017-02-18] MEDS: FORMOTEROL FUMARATE 20 MCG/2 ML NEBU INHALATION SCH (20:28)
[2017-02-18] MEDS: LEVALBUTEROL NEB (CONC) 1.25 MG/0.5 ML AMP INHALATION SCH (20:28)
[2017-02-18 21:24] LABS: Glucose,Whole Blood 207 mg/dL (75-99)
[2017-02-18] MEDS: TEMAZEPAM 15 MG CAP PO PRN (22:17)
[2017-02-18] MEDS: LATANOPROST 0.005% OPHTH DROPS 2.5 ML BTL BOTH EYES SCH (22:18)
[2017-02-18 23:51] LABS: Appearance,Urine Turbid (Clear); Bacteria,Urine Few /hpf; Bilirubin,Urine Negative (Negative); Glucose,Urine (UA) Negative (Negative); Ketones,Urine Negative (Negative); Leukocyte Esterase,Urine Large (Negative); Mucus,Urine Rare /hpf; Nitrite,Urine Negative (Negative); Particle Count 57102; Protein,Urine 2+ (Negative); RBC,Urine 8 /hpf (0-5); Specific Gravity,Urine 1.013 (1.001-1.035); UA Billing (MACRO vs. MICRO) MICRO; Urobilinogen,Urine <2.0 mg/dL (<2.0); WBC,Urine >182 /hpf (0-5)
[2017-02-19] MEDS: methylPREDNISolone SOD SUCCI 125 MG/2 ML VIAL IV SCH ×4 (01:05→17:41)
[2017-02-19 07:39] LABS: Glucose,Whole Blood 195 mg/dL (75-99)
[2017-02-19] MEDS: FORMOTEROL FUMARATE 20 MCG/2 ML NEBU INHALATION SCH ×2 (08:13→21:09)
[2017-02-19] MEDS: LEVALBUTEROL NEB (CONC) 1.25 MG/0.5 ML AMP INHALATION SCH ×3 (08:13→21:10)
[2017-02-19] MEDS: IPRATROPIUM 0.5 MG/2.5 ML NEBU INHALATION SCH ×4 (08:13→21:09)
[2017-02-19] MEDS: METOPROLOL TARTRATE 25 MG TAB PO SCH ×2 (08:25→21:44)
[2017-02-19] MEDS: PANTOPRAZOLE 40 MG TABLET PO SCH (08:25)
[2017-02-19] MEDS: amLODIPine 5 MG TAB PO SCH (08:25)
[2017-02-19] MEDS: cycloSPORINE 0.05% OPHTH 0.4 ML DROPERETTE BOTH EYES SCH ×2 (08:25→21:47)
[2017-02-19] MEDS: MELOXICAM 7.5 MG TAB PO SCH (08:25)
[2017-02-19] MEDS: INSULIN LISPRO (humaLOG) 300 UNIT/3 ML VIAL SQ SCH ×4 (08:26→21:42)
[2017-02-19] MEDS: CYANOCOBALAMIN 500 MCG TAB PO SCH (08:26)
[2017-02-19] MEDS: guaiFENesin 600 MG TABLET.ER PO SCH (08:26)
[2017-02-19] MEDS: CALCIUM CARBONATE 500 MG CHEWABLE PO SCH (08:26)
[2017-02-19] MEDS: BRIMONIDINE TARTRATE 0.2% DROPS 5 ML BTL BOTH EYES SCH ×2 (08:27→21:46)
[2017-02-19] MEDS: FLUTICASONE 50MCG/SPRAY NASAL 16GM EA NOSTRIL SCH ×2 (08:27→21:46)
[2017-02-19] MEDS: TIMOLOL 0.5% OPHTH DROPS 5 ML BTL BOTH EYES SCH ×2 (08:27→21:46)
[2017-02-19] MEDS: ASPIRIN 81 MG CHEW PO SCH (08:27)
[2017-02-19 11:48] LABS: Glucose,Whole Blood 295 mg/dL (75-99)
[2017-02-19 17:16] LABS: Glucose,Whole Blood 94 mg/dL (75-99)
--- NOTE | 2017-02-19 19:51 | P.DS ---
Providers Date of admission: 02/16/17 14:46 Attending physician: Dawood Washington Consults: 02/16/17 14:46 Consult Physician Routine Consulting Provider: Noah Schafer Reason/Comments: COPD exacerbation Do you want consulting provider notified?: Yes Primary care physician: Dawood Washington - Discharge Diagnosis(es) (1) COPD exacerbation End-stage and Macrodantin lung patient being transferred to [facility] [place] for hospice care Current Visit: Yes Status: Acute Hospital Course: End-stage lung disease patient being transferred to [facility] for hospice care General: [Patient awake, alert and oriented times 3. Patient in no acute distress.] HEENT: [PERRL. EOMI. No pharyngeal erythema or exudate.] Neck: [No adenopathy.] Cardiac: [Heart regular in rate and rhythm. No S3. No S4. No clicks, rubs. No murmur.] Lungs: Diminished breath sounds bilaterally with bibasilar fine crackles Abdomen: [No mass. No organomegaly. Bowel sounds presnt and normoactive in all 4 quadrants.] Extremes: [No edema no cyanosis no claudication normal pulses] : [] Musculoskeletal: [No joint erythema, edema or tenderness.] Skin: [No rash.] Neurologic: [No lateralizing deficits. CN II - XII grossly intact.] Lymphatic: [No adenopathy.] Patient Condition at Discharge: Poor Plan - Discharge Summary New Discharge Prescriptions: No Action amLODIPine [Norvasc] 5 mg PO QAM Cyclosporine, Modified [Cyclosporine Modified] 100 mg PO HS Aspirin 81 mg PO QAM Latanoprost Ophth [Xalatan 0.005%] 1 drop BOTH EYES HS Fluticasone Nasal [place] [Flonase Nasal [place]] 1 spray EA NOSTRIL BID Metoprolol Tartrate [Lopressor] 25 mg PO BID tab Brimonidine Tartrate [Alphagan P 0.2% Ophth Soln] 1 drop BOTH EYES BID guaiFENesin [Mucinex] 600 mg PO QAM Omeprazole 20 mg PO QAM Celecoxib [CeleBREX] 200 mg PO QAM Calcium Carbonate [Calcium] 600 mg PO QAM Budesonide-Formot 160-4.5 Mcg [Symbicort 160-4.5 Mcg Inhaler] 2 puff INHALATION RT-BID #3 puff cycloSPORINE 0.05% OPHTH SOLN [Restasis] 1 drop BOTH EYES BID Betaxolol HCl [Betoptic S 0.5% Ophth Soln] 1 drop BOTH EYES BID Tiotropium [place] [Spiriva] 1 cap INHALATION RT-DAILY Levalbuterol Nebulized [Xopenex Nebulized] 1.25 mg INHALATION RT-BID Cyanocobalamin (Vitamin B-12) [Vitamin B-12] 1,000 mcg PO DAILY predniSONE 5 mg PO DAILY Discharge Medication List Cyclosporine, Modified [Cyclosporine Modified] 100 mg PO HS 02/07/14 [History] amLODIPine [Norvasc] 5 mg PO QAM 02/07/14 [History] Aspirin 81 mg PO QAM 05/09/15 [History] Latanoprost Ophth [Xalatan 0.005%] 1 drop BOTH EYES HS 11/02/15 [History] Fluticasone Nasal [place] [Flonase Nasal [place]] 1 spray EA NOSTRIL BID 11/09/15 [ History] Metoprolol Tartrate [Lopressor] 25 mg PO BID tab 11/14/15 [Rx] Brimonidine Tartrate [Alphagan P 0.2% Ophth Soln] 1 drop BOTH EYES BID 12/17/15 [History] Calcium Carbonate [Calcium] 600 mg PO QAM 06/28/16 [History] Celecoxib [CeleBREX] 200 mg PO QAM 06/28/16 [History] Omeprazole 20 mg PO QAM 06/28/16 [History] guaiFENesin [Mucinex] 600 mg PO QAM 06/28/16 [History] Budesonide-Formot 160-4.5 Mcg [Symbicort 160-4.5 Mcg Inhaler] 2 puff INHALATION RT-BID #3 puff 07/01/16 [Rx] Betaxolol HCl [Betoptic S 0.5% Ophth Soln] 1 drop BOTH EYES BID 01/31/17 [ History] Cyanocobalamin (Vitamin B-12) [Vitamin B-12] 1,000 mcg PO DAILY 01/31/17 [ History] Levalbuterol Nebulized [Xopenex Nebulized] 1.25 mg INHALATION RT-BID 01/31/17 [ History] Tiotropium [place] [Spiriva] 1 cap INHALATION RT-DAILY 01/31/17 [History] cycloSPORINE 0.05% OPHTH SOLN [Restasis] 1 drop BOTH EYES BID 01/31/17 [History] predniSONE 5 mg PO DAILY 02/14/17 [History] Follow up Appointment(s)/Referral(s): Dawood Washington MD [Primary Care Provider] - 1-2 days
[2017-02-19 21:26] LABS: Glucose,Whole Blood 156 mg/dL (75-99)
[2017-02-19] MEDS: TEMAZEPAM 15 MG CAP PO PRN (21:44)
[2017-02-19] MEDS: LATANOPROST 0.005% OPHTH DROPS 2.5 ML BTL BOTH EYES SCH (21:46)
[2017-02-20] MEDS ORDERED: methylPREDNISolone SOD SUCCI 125 MG/2 ML VIAL IV SCH
[2017-02-20 07:31] LABS: Glucose,Whole Blood 155 mg/dL (75-99)
[2017-02-20 07:54] VITALS: BP 160/90; RESP 19; TEMP 97
[2017-02-20] MEDS: FORMOTEROL FUMARATE 20 MCG/2 ML NEBU INHALATION SCH (08:16)
[2017-02-20] MEDS: LEVALBUTEROL NEB (CONC) 1.25 MG/0.5 ML AMP INHALATION SCH ×2 (08:17→11:46)
[2017-02-20] MEDS: IPRATROPIUM 0.5 MG/2.5 ML NEBU INHALATION SCH ×3 (08:17→15:29)
[2017-02-20] MEDS ORDERED: methylPREDNISolone SOD SUCCI 40 MG/ML 1 ML VIAL IV SCH (09:00)
[2017-02-20] MEDS: CALCIUM CARBONATE 500 MG CHEWABLE PO SCH (09:15)
[2017-02-20] MEDS: amLODIPine 5 MG TAB PO SCH (09:15)
[2017-02-20] MEDS: BRIMONIDINE TARTRATE 0.2% DROPS 5 ML BTL BOTH EYES SCH (09:15)
[2017-02-20] MEDS: MELOXICAM 7.5 MG TAB PO SCH (09:15)
[2017-02-20] MEDS: METOPROLOL TARTRATE 25 MG TAB PO SCH (09:15)
[2017-02-20] MEDS: guaiFENesin 600 MG TABLET.ER PO SCH (09:15)
[2017-02-20] MEDS: PANTOPRAZOLE 40 MG TABLET PO SCH (09:15)
[2017-02-20] MEDS: CYANOCOBALAMIN 500 MCG TAB PO SCH (09:15)
[2017-02-20] MEDS: TIMOLOL 0.5% OPHTH DROPS 5 ML BTL BOTH EYES SCH (09:15)
[2017-02-20] MEDS: ASPIRIN 81 MG CHEW PO SCH (09:15)
[2017-02-20] MEDS: INSULIN LISPRO (humaLOG) 300 UNIT/3 ML VIAL SQ SCH ×3 (09:16→16:50)
[2017-02-20] MEDS: FLUTICASONE 50MCG/SPRAY NASAL 16GM EA NOSTRIL SCH (09:16)
[2017-02-20] MEDS: cycloSPORINE 0.05% OPHTH 0.4 ML DROPERETTE BOTH EYES SCH (09:16)
[2017-02-20] MEDS ORDERED: LEVOFLOXACIN 750 MG TAB PO SCH (12:00)
[2017-02-20 12:13] LABS: Glucose,Whole Blood 233 mg/dL (75-99)
[2017-02-20 14:31] VITALS: BMI 18.3
[2017-02-20 15:34] VITALS: PULSE 104
== END 2017-02-20 17:39 | disposition hospice, inpatient (51) | DRG 191 ==
LOC: EC 10:30 → 6SEL 14:46 → 4MS4W 02-18 17:56 → 6SEL 02-18 18:08 → 4MS4W 02-18 18:51
PROVIDERS: ADMIT Family Medicine; ATTEND Family Medicine
DX: J44.1 Chronic obstructive pulmonary disease with (acute) exacerbation (principal); J45.21 Mild intermittent asthma with (acute) exacerbation; I11.9 Hypertensive heart disease without heart failure; J84.10 Pulmonary fibrosis, unspecified; D64.9 Anemia, unspecified; E04.1 Nontoxic single thyroid nodule; K21.9 Gastro-esophageal reflux disease without esophagitis; M19.90 Unspecified osteoarthritis, unspecified site; R32 Unspecified urinary incontinence; Z79.82 Long term (current) use of aspirin; Z79.899 Other long term (current) drug therapy; Z86.14 Personal history of Methicillin resistant Staphylococcus aureus infection; Z96.642 Presence of left artificial hip joint; Z88.2 Allergy status to sulfonamides; Z66 Do not resuscitate
CPT/HCPCS: 36415; 71020; 71275; 80053; 81001; 82550; 82553; 83036; 83735; 83880; 84484; 85025; 85379; 85610; 85730; 87040; 93005; 94640; 94644; 94760; 96374; 96376; 99283; 99285